=== PATIENT | male | born 1980 | race Caucasian/White ===

== ENCOUNTER 2021-02-06 10:27 | Emergency (ER) | payer MEDICAID, SELFPAY ==
--- NOTE | ~2021-02-06 | CT_ITS ---
EXAMINATION: CT BRAIN WITHOUT CONTRAST. CHEST X-RAY. CLINICAL INFORMATION: Blurry vision x1 week hyperglycemia. COMPARISON: None TECHNIQUE: 3 mm thin axial and reformatted 2 mm thin sagittal coronal images of brain were obtained without contrast. Chest one view. FINDINGS: BRAIN: There is no acute intra-axial, extra-axial bleed, masses, collection or midline shift. There is no acute infarction in evolution. The dodson to white matter difference is maintained normal. The lateral ventricles are symmetrical in size and configuration without enlargement. Bone windows reveal no calvarial abnormality. There is no scalp soft tissue abnormality. Bilateral paranasal sinuses and mastoid air cells are well-aerated. CHEST X-RAY: The lungs are well-expanded and clear of acute process. The heart size and pulmonary vascularity is normal. No gross bony abnormality seen. CT/CT head/brain wo con IMPRESSION: No acute intracranial process seen. Unremarkable chest exam.
[2021-02-06 10:45] VITALS: BP 126/88; PULSE 78; RESP 18; TEMP 36.9; O2SAT 96; BMI 36.5
[2021-02-06 10:57] LABS: Glucose, Whole Blood 334 mg/dL (60-115)
[2021-02-06 11:47] LABS: MANUAL DIFF FLAG NO
[2021-02-06 11:53] LABS: Basophils Percent Auto 0.6 % (0-2); Eosinophils Absolute Auto 0.1 X10*3/uL (0.0-0.4); Eosinophils Percent Auto 1.3 % (0-4); Hematocrit 45.1 % (42.0-52.0); Hemoglobin 15.8 g/dl (14.0-18.0); Imm Gran Abs Auto 0.03 X10*3/uL (0.00-0.03); Imm Gran Pct Auto 0.4 % (0.0-0.4); Lymphocytes Absolute Auto 2.9 X10*3/uL (1.2-4.9); Lymphocytes Percent Auto 39.6 % (20-40); Mean Corpuscular Hemoglobin 28.8 pg (27.0-33.0); Mean Corpuscular Volume 82.3 fL (80.0-98.0); Mean Platelet Volume 10.9 fL (9.4-12.4); Monocytes Absolute Auto 0.5 X10*3/uL (0.1-1.2); Monocytes Percent Auto 7.1 % (2-11); Neutrophils Absolute Auto 3.7 x10*3/uL (2.0-8.3); Platelet Count 273 X10*3/uL (160-400); Red Blood Count 5.48 X10*6/uL (4.60-5.80); Red Cell Distribution Width 12.2 % (11.0-16.0); White Blood Count 7.2 X10*3/uL (4.8-10.8)
[2021-02-06 12:14] LABS: Anion Gap 13 (12-20); Blood Urea Nitrogen 13 mg/dL (9-16); Calcium 10.4 mg/dL (8.4-10.2); Carbon Dioxide 25 mmol/L (22-29); Chloride 99 mmol/L (96-108); Creatinine Clr Calc Pharmacy 107.6; Estimated Glomerular Filt Rate > 60; Glucose Random 360 mg/dL (60-115); Potassium 4.5 mmol/L (3.3-5.1); Sodium 132 mmol/L (135-145)
[2021-02-06 12:25] LABS: Appearance Urine CLEAR; Color Urine YELLOW; Glucose Urine UA >=1000 MG/DL (NEG); Leukocyte Esterase Urine NEG (NEG); Nitrite Urine NEG (NEG); UACC Culture Trigger NO; Urine Blood TRACE (NEG); Urine Ketones NEG (NEG); Urine Protein 2+ MG/DL (NEG-TRACE)
[2021-02-06 12:26] LABS: Alanine Aminotransferase 41 U/L (0-40); Albumin Level 4.6 g/dL (3.5-5.0); Alkaline Phosphatase 129 U/L (39-117); Aspartate Amino Transferase 24 U/L (5-37); Bilirubin Direct 0.2 mg/dL (0.0-0.5); Bilirubin Total 0.5 mg/dL (0.0-1.0); Lipase 39 U/L (8-78); Magnesium 2.1 mg/dL (1.6-2.6); Total Protein 8.1 g/dL (6.5-8.0)
[2021-02-06] MEDS: 0.9 % Sodium Chloride 1,000 ML 999 ML IVCONT (12:36)
[2021-02-06 12:37] VITALS: BP 139/91; PULSE 87; RESP 17; TEMP 36.7; O2SAT 95
[2021-02-06 12:44] LABS: RBC Urine 0-2 /HPF (0); WBC Urine 0-2 /HPF (0-4)
[2021-02-06 13:00] LABS: Acetone, serum QL Negative (Negative)
--- NOTE | 2021-02-06 13:37 | ED.GENADULT ---
HPI - General Adult General Chief complaint: General Medical Stated complaint: blurred vission Time Seen by Provider: 02/06/21 11:44 Source: patient Mode of arrival: ambulatory History of Present Illness HPI narrative: 40-year-old male with a past medical history of [place] s/p stenting, non compliant on all medications x6 +months presenting to the ED complaining of bilateral blurry vision x1 week with associated polyuria, polydipsia, polyphasia. Admits to several high readings of glucose at home, denies personal or family history of diabetes. Denies fever, chills, cough, CP/SOB, abdominal pain, nausea/vomiting Onset (ago): week(s) Radiation: non-radiation Severity: mild and moderate Pain Consistency: constant Relieving factors: none Related Data Previous Rx's Medication Instructions Recorded aspirin 81 mg tablet,delayed 81 mg PO DAILY #30 tab 02/06/21 release atorvastatin 80 mg tablet 80 mg PO BEDTIME #30 tab 02/06/21 blood-glucose meter (FreeStyle #1 ea 02/06/21 [place]) clopidogrel 75 mg tablet (Plavix) 75 mg PO DAILY #30 tab 02/06/21 metformin 500 mg tablet 500 mg PO BID 30 Days #60 tab 02/06/21 metoprolol tartrate 25 mg tablet 25 mg PO DAILY #30 tab 02/06/21 Allergies Allergy/AdvReac Type Severity Reaction Status Date / Time No Known Allergies Allergy Unverified 02/06/21 12:03 Review of Systems Review of Systems: Constitutional: No Weight loss, No Fever, No Chills, No Fatigue, No Malaise ENT/Mouth: No Hearing loss, No Ear Pain, No Nasal Congestion, No Sinus Pain, No sore throat, No Swallowing Difficulty Eyes: No Eye Pain, No Swelling, No Redness, + Vision Changes Cardiovascular: No Chest Pain, No SOB, No Edema, No Palpitations Respiratory: No Cough, No Sputum, No Dyspnea Gastrointestinal: No Nausea, No Vomiting, No Diarrhea, No Constipation, No Abdominal pain Genitourinary: No Dysuria, No Urinary Frequency, No Hematuria, No Urgency, No Flank Pain, + Urinary Flow Changes Musculoskeletal: No joint pain, No Myalgias, No Joint Swelling Skin: No Skin Lesions, No rash Neuro: No Weakness, No Numbness, No Paresthesias, No Loss of Consciousness, No Dizziness, No Headache Endocrine: + Polyuria, + Polydipsia, No Temperature Intolerance Yes all other systems are reviewed and are negative Neurologic: Denies Abnormal speech present [facility] Past Medical History Attestation statement: The following information was validated with the patient. Medical History Myocardial infarct Social History Social History Advance Directives: No Advance Directives Information Provided: No Physical Exam Vital Signs: Vital Signs: Last Vital Signs Temp 97.7 F 02/06/21 15:18 Pulse 91 02/06/21 15:18 Resp 18 02/06/21 15:18 BP 124/85 02/06/21 15:18 Pulse Ox 97 02/06/21 15:18 BMI result Body Mass Index 36.5 Const: General: cooperative, healthy appearing, no acute distress, well developed, alert and awake Orientation/consciousness: patient oriented x3 Limitations: no limitations HENMT: Head: Yes normal to inspection Ears: hearing grossly normal bilaterally General nose exam: Normal external nose present Face and sinus: Yes normal facial exam Mouth: Normal oral and palatal mucosa present Throat: Yes posterior oropharynx normal, Yes tonsils normal and Yes uvula midline Eyes: General: appearance normal, both eyes and all related structures Sclerae: sclerae normal Corneas: corneas normal Pupils: Equal, round and reactive pupils present EOM: EOMs intact bilaterally Neck: Neck: Yes normal visual inspection and Yes no meningeal signs Resp: Effort & Inspection: normal respiratory effort Auscultation: clear to auscultation bilaterally, no rales, no rhonchi and no wheezes Cardio: Rate: regular rate Heart sounds: S1 normal heart sound present and S2 normal heart sound present GI: Inspection: Yes normal to inspection Palpation (GI): Soft to palpation, nontender, no guarding and not rigid : General: Yes no CVA tenderness Back/Spine/Pelvis: Back: no CVA tenderness Skin: Rashes: no rashes Wounds: no wounds Neuro: General: patient oriented x3, gait normal, tone normal, moves all extremities, no meningeal signs, no focal motor deficits and CN's II-XI intact bilaterally Cranial nerves: Yes CN's II-XII intact bilaterally, Yes Equal, round and reactive pupils present and Yes Bilaterally intact EOM present Cognition (Neuro): normal cognition Speech: No Abnormal speech present Gait exam (Neuro): Normal gait present Motor exam (neuro): 5/5 motor strength present throughout and Pronator motor function not present Extrem: General: Yes normal to inspection Course Course Course Narrative: -1400--no leukocytosis. H&H stable. Glucose 360, no anion gap, acetone negative -Sodium 132, corrected for hyperglycemia 138 >> repeat glucose after 1L IVF 254 > will give 6U subQ insulin XR chest 1V IMPRESSION: No acute intracranial process seen. Unremarkable chest exam.? CT head/brain wo con IMPRESSION: No acute intracranial process seen. Unremarkable chest exam.? -patient has no insurance and no PCP case discussed with case management, working on obtaining last PCP records from [facility] to see what patient's prescribed medications are/getting patient set up with financial office to obtain [facility] -[id number]-waiting on records from patient's PCP to prescribe previous medications. Sent Metformin to [facility] as is $4 for 30 day supply. Discussed importance of compliance with patient in need for [employer] application, he is going to financial office after discharge on 1st floor -[id number]--received records from [facility] patient was discharged on December 07, 2019 after a STEMI with 2 stents placed discharge medications included Aspirin, Atorvastatin, Plavix, Metoprolol. Will re-initiate patient on all these medications Medical Decision Making MDM Narrative Medical decision making narrative: 40-year-old male with a past medical history of AZ s/p stenting, non compliant on all medications x6 +months presenting to the ED complaining of bilateral blurry vision x1 week with associated polyuria, polydipsia, polyphasia. On exam vital signs stable, NAD/nontoxic-appearing, concern for new onset diabetes vs hyperglycemia vs other metabolic abnormalities. Low concern for CVA/TIA. Will obtain head CT to rule out mass Plan: Labs, UA, head CT, CXR, IVF, re-evaluate Medical Records Medical records reviewed: Yes I reviewed the patient's medical records. Lab Data Lab results reviewed: Yes I reviewed the patient's lab results. Result diagrams: 02/06/21 11:42 02/06/21 11:42 Labs: Lab Results 02/06/21 02/06/21 02/06/21 Range/Units 10:53 11:42 11:42 WBC 7.2 (4.8-10.8) X10*3/uL RBC 5.48 (4.60-5.80) X10*6/uL Hgb 15.8 (14.0-18.0) g/dl Hct 45.1 (42.0-52.0) % MCV 82.3 (80.0-98.0) fL MCH 28.8 (27.0-33.0) pg MCHC 35.0 (31.0-36.0) g/dl RDW 12.2 (11.0-16.0) % Plt Count 273 (160-400) X10*3/uL MPV 10.9 (9.4-12.4) fL Immature Gran % (Auto) 0.4 (0.0-0.4) % Neut % (Auto) 51.0 (45-73) % Lymph % (Auto) 39.6 (20-40) % Vernon % (Auto) 7.1 (2-11) % Eos % (Auto) 1.3 (0-4) % Baso % (Auto) 0.6 (0-2) % Lymph # (Auto) 2.9 (1.2-4.9) X10*3/uL Vernon # (Auto) 0.5 (0.1-1.2) X10*3/uL Eos # (Auto) 0.1 (0.0-0.4) X10*3/uL Baso # (Auto) 0.0 (0.0-0.2) X10*3/uL Abs Immat Gran (auto) 0.03 (0.00-0.03) X10*3/uL Absolute Neuts (auto) 3.7 (2.0-8.3) x10*3/uL Absolute Nucleated RBC 0.000 (0.0-0.012) X10*3/uL Nucleated RBC % (auto) 0.0 (0.0-0.2) /100WBC Sodium 132 L (135-145) mmol/L Potassium 4.5 (3.3-5.1) mmol/L Chloride 99 (96-108) mmol/L Carbon Dioxide 25 (22-29) mmol/L Anion Gap 13 (12-20) BUN 13 (9-16) mg/dL Creatinine 1.08 (0.5-1.4) mg/dL Estim Creat Clear Calc 107.6 Estimated GFR > 60 POC Glucose 334 H (60-115) mg/dL Random Glucose 360 H* (60-115) mg/dL Calcium 10.4 H (8.4-10.2) mg/dL Magnesium 2.1 (1.6-2.6) mg/dL Total Bilirubin 0.5 (0.0-1.0) mg/dL Direct Bilirubin 0.2 (0.0-0.5) mg/dL AST 24 (5-37) U/L ALT 41 H (0-40) U/L Alkaline Phosphatase 129 H (39-117) U/L Total Protein 8.1 H (6.5-8.0) g/dL Albumin 4.6 (3.5-5.0) g/dL Lipase 39 (8-78) U/L Urine Color Urine Appearance Urine pH (5.0-8.0) Ur Specific [place] (1.005-1.025) Urine Protein (NEG-TRACE) MG/DL Urine Glucose (UA) (NEG) MG/DL Urine Ketones (NEG) MG/DL Urine Blood (NEG) Urine Nitrite (NEG) Ur Leukocyte Esterase (NEG) Urine RBC (0) /HPF Urine WBC (0-4) /HPF Ur Squamous Epith Cells /LPF Urine Bacteria /LPF Acetone, Qual Negative (Negative) 02/06/21 02/06/21 Range/Units 12:07 13:54 WBC (4.8-10.8) X10*3/uL RBC (4.60-5.80) X10*6/uL Hgb (14.0-18.0) g/dl Hct (42.0-52.0) % MCV (80.0-98.0) fL MCH (27.0-33.0) pg MCHC (31.0-36.0) g/dl RDW (11.0-16.0) % Plt Count (160-400) X10*3/uL MPV (9.4-12.4) fL Immature Gran % (Auto) (0.0-0.4) % Neut % (Auto) (45-73) % Lymph % (Auto) (20-40) % Vernon % (Auto) (2-11) % Eos % (Auto) (0-4) % Baso % (Auto) (0-2) % Lymph # (Auto) (1.2-4.9) X10*3/uL Vernon # (Auto) (0.1-1.2) X10*3/uL Eos # (Auto) (0.0-0.4) X10*3/uL Baso # (Auto) (0.0-0.2) X10*3/uL Abs Immat Gran (auto) (0.00-0.03) X10*3/uL Absolute Neuts (auto) (2.0-8.3) x10*3/uL Absolute Nucleated RBC (0.0-0.012) X10*3/uL Nucleated RBC % (auto) (0.0-0.2) /100WBC Sodium (135-145) mmol/L Potassium (3.3-5.1) mmol/L Chloride (96-108) mmol/L Carbon Dioxide (22-29) mmol/L Anion Gap (12-20) BUN (9-16) mg/dL Creatinine (0.5-1.4) mg/dL Estim Creat Clear Calc Estimated GFR POC Glucose 254 H (60-115) mg/dL Random Glucose (60-115) mg/dL Calcium (8.4-10.2) mg/dL Magnesium (1.6-2.6) mg/dL Total Bilirubin (0.0-1.0) mg/dL Direct Bilirubin (0.0-0.5) mg/dL AST (5-37) U/L ALT (0-40) U/L Alkaline Phosphatase (39-117) U/L Total Protein (6.5-8.0) g/dL Albumin (3.5-5.0) g/dL Lipase (8-78) U/L Urine Color YELLOW Urine Appearance CLEAR Urine pH 6.0 (5.0-8.0) Ur Specific [place] 1.020 (1.005-1.025) Urine Protein 2+ H (NEG-TRACE) MG/DL Urine Glucose (UA) >=1000 H (NEG) MG/DL Urine Ketones NEG (NEG) MG/DL Urine Blood TRACE (NEG) Urine Nitrite NEG (NEG) Ur Leukocyte Esterase NEG (NEG) Urine RBC 0-2 (0) /HPF Urine WBC 0-2 (0-4) /HPF Ur Squamous Epith Cells NONE /LPF Urine Bacteria NONE /LPF Acetone, Qual (Negative) Discharge Plan Discharge Clinical Impression: Diabetes mellitus, new onset Patient Disposition: Home, Self-Care Instructions: Diabetes and Nutrition (ED), Diabetes and Exercise (ED) Additional Instructions: You have new onset diabetes You need to practice a diabetic diet Metformin is a diabetic medication, take as prescribed, do not miss any doses Is very important for you to monitor your sugar at home You also need to take your other home prescribed medications PLEASE APPLY FOR [employer]. IT IS CRUCIAL YOU HAVE A PRIMARY CARE DOCTOR THAT CAN CONTINUE THESE MEDICATIONS You are at risk other HEART ATTACKS AND STROKE with your medication noncompliance If your symptoms persist/worsen, you have chest pain/shortness of breath, weakness please return to the emergency department Prescriptions: New metformin 500 mg tablet 500 mg PO BID 30 Days Qty: 60 RF: 0 (DME) blood-glucose meter [FreeStyle [place]] Kit See Rx Instructions .Route Qty: 1 RF: 0 aspirin 81 mg tablet,delayed release (DR/EC) 81 mg PO DAILY Qty: 30 RF: 0 atorvastatin 80 mg tablet 80 mg PO BEDTIME Qty: 30 RF: 0 clopidogrel [Plavix] 75 mg tablet 75 mg PO DAILY Qty: 30 RF: 0 metoprolol tartrate 25 mg tablet 25 mg PO DAILY Qty: 30 RF: 0 Referrals: Lidia Lowery MD [Physician] - 2 days Physician,None [Primary Care Provider] - 2 days Stand Alone Forms: Work/School Release Discharge Date/Time: 02/06/21 15:25
[2021-02-06 13:58] LABS: Glucose, Whole Blood 254 mg/dL (60-115)
[2021-02-06] MEDS: Insulin Lispro 100 UNIT/ML 3 ML VIAL 6 UNIT SUBCUT (14:23)
[2021-02-06 15:18] VITALS: BP 124/85; PULSE 91; RESP 18; TEMP 36.5; O2SAT 97
== END 2021-02-06 15:25 | disposition home or self-care (01) ==
PROVIDERS: Physician Assistant; Emergency Provider Emergency Medicine
DX: H53.8 Other visual disturbances (principal); E11.9 Type 2 diabetes mellitus without complications; Z79.899 Other long term (current) drug therapy
CPT/HCPCS: 36415; 70450; 71045; 80048; 80076; 81001; 82009; 82947; 83690; 83735; 85025; 96360; 99283; 99284

== ENCOUNTER 2021-02-20 09:29 | Outpatient (REF) | payer OTHER, SELFPAY ==
[2021-02-20 10:10] LABS: Estimated Average Glucose 309 mg/dL; Hemoglobin A1c % 12.4 %
[2021-02-20 10:36] LABS: Appearance Urine CLEAR; Color Urine YELLOW; Glucose Urine UA 250 MG/DL (NEG); Leukocyte Esterase Urine NEG (NEG); Nitrite Urine NEG (NEG); Specific Gravity - Urine >= 1.030 (1.005-1.025); UACC Culture Trigger NO; Urine Blood NEG (NEG); Urine Ketones NEG (NEG); Urine Protein 1+ MG/DL (NEG-TRACE)
[2021-02-20 10:39] LABS: Cholesterol 196 mg/dL; HDL Cholesterol 37 mg/dL; LDL Cholesterol Calculated 128 mg/dl; Triglycerides 159 mg/dL
[2021-02-20 10:54] LABS: TSH reflex Free T4 1.25 uIU/mL (0.32-4.0)
[2021-02-20 11:00] LABS: Renal Epithelial Cells Urine TRACE /LPF; WBC Urine 0-2 /HPF (0-4)
[2021-02-20 11:01] LABS: RBC Urine 0 /HPF (0)
[2021-02-20 11:05] LABS: Creatinine Urine 234.47 mg/dL; Microalbum/Creatinine Ratio Ur 182.5 ug/mg cr
== END 2021-02-20 09:30 | disposition home or self-care (01) ==
LOC: HO.LAB 09:29
PROVIDERS: PCP Nurse Practitioner Family; Visit Provider Nurse Practitioner Family
DX: Z00.00 Encounter for general adult medical examination without abnormal findings (principal); E78.00 Pure hypercholesterolemia, unspecified; I10 Essential (primary) hypertension; I25.2 Old myocardial infarction; E11.65 Type 2 diabetes mellitus with hyperglycemia; Z71.3 Dietary counseling and surveillance
CPT/HCPCS: 36415; 80061; 81001; 82043; 83036; 84443; 97802

== ENCOUNTER 2021-03-09 14:31 | Outpatient (REF) | payer OTHER, SELFPAY ==
[2021-03-09 16:12] LABS: Binax Now Covid-19 Ag Negative (Negative)
[2021-03-09 16:13] LABS: Binax Internal Control QC Valid; Binax Lot number: 9864
== END 2021-03-09 14:32 | disposition home or self-care (01) ==
LOC: HO.LAB 14:31
PROVIDERS: Visit Provider Internal Medicine
DX: Z20.822 Contact with and (suspected) exposure to COVID-19 (principal)
CPT/HCPCS: 36415; C9803

== ENCOUNTER 2021-10-05 13:45 | Outpatient (REF) | payer OTHER, SELFPAY | END 2021-10-05 13:46 | disposition home or self-care (01) | LOC: HO.LNP 13:45 | PROVIDERS: Visit Provider Physician Assistant Medical | DX: L60.0 Ingrowing nail (principal) | CPT/HCPCS: 87071; 87077; 87186; 87205 ==

== ENCOUNTER 2021-10-10 16:37 | Emergency (ER) | payer OTHER, SELFPAY ==
--- NOTE | 2021-10-10 17:28 | ED_ITS ---
HPI - Extremity Problem General Chief complaint: Skin/Abscess/Foreign Body Stated complaint: ingrown toenail Time Seen by Provider: 10/10/21 17:45 Source: patient Mode of arrival: ambulatory Limitations: no limitations History of Present Illness HPI Narrative: 40-year-old male presents with right great toe pain for approximately 2 months because of an ingrown toenail. He was evaluated at urgent care and given an tibiotics for redness and swelling. States the antibiotics are not very effective and this is his 2nd course. He does not report fevers, chills, palpitations, shortness of breath, loss of balance, or decreased sensation to the extremity. MD Complaint: extremity pain Onset (ago): month(s) (2) Pain Consistency: constant Location: right and toe (Great toe) Severity scale (1-10): 6 Quality: aching and constant Radiation: none Relieving factors: nothing Exacerbating factors: range of motion, weight bearing, walking and palpation Associated symptoms: denies other symptoms Related Data Previous Rx's Medication Instructions Recorded blood sugar diagnostic #100 ea 02/25/21 atorvastatin 80 mg tablet 80 mg PO BEDTIME #90 tabs 05/14/21 clopidogrel 75 mg tablet (Plavix) 75 mg PO DAILY #90 tabs 05/14/21 insulin glargine 100 unit/mL (3 15 unit (0.15 mL) subcut QPM #3 mL 05/14/21 mL) subcutaneous pen (Lantus Solostar U-100 Insulin) metoprolol tartrate 25 mg tablet 25 mg PO DAILY #90 tabs 05/14/21 pen needle, diabetic 32 gauge x #100 ea 06/04/21 (Comfort EZ Pen Lawrence) flash glucose sensor (FreeStyle #2 ea 06/17/21 Hiwot 2 Sensor kit) aspirin 81 mg tablet,delayed 81 mg PO DAILY #90 tabs 08/27/21 release lisinopril 10 mg tablet 10 mg PO DAILY #90 tabs 08/27/21 metformin 500 mg tablet 1,000 mg PO BID #120 tabs 08/27/21 sulfamethoxazole 800 1 tab PO Q12H #20 tabs 09/10/21 mg-trimethoprim 160 mg tablet (Bactrim DS) doxycycline monohydrate 100 mg 100 mg PO BID 14 days #28 caps 10/05/21 capsule Allergies Allergy/AdvReac Type Severity Reaction Status Date / Time No Known Allergies Allergy Verified 10/05/21 10:20 Review of Systems Review of Systems: Constitutional: No Fever, No Chills ENT/Mouth: No Ear Pain, No Hoarseness, No sore throat Eyes: No Eye Pain, No Swelling, No Redness, No Foreign Body Cardiovascular: No Chest Pain, No SOB Respiratory: No Cough, No Dyspnea Gastrointestinal: No Nausea, No Vomiting, No Diarrhea, No abdominal Pain Genitourinary: No Dysuria, No Hematuria Musculoskeletal: positive right great toe pain, No Myalgias, No Joint Swelling Skin: No Skin lacerations, No rash Neuro: No Weakness, No Numbness, No Paresthesias, No Loss of Consciousness, No Dizziness, No Headache Psych: No Anxiety/Panic, No Depression Heme/Lymph: no easy bruising, no Lymphadenopathy Endocrine: No Polyuria, No Polydipsia Yes all other systems are reviewed and are negative [facility] [place] Past Medical History Attestation statement: The following information was validated with the patient. Source: old records reviewed Medical History Myocardial infarct Social History Social History Housing: Apartment Patient Tobacco Use Status: Never used Tobacco e-Cigarette/Vaping Use: Never Used Second Hand Smoke Exposure: No Advance Directives: No Advance Directives Information Provided: No service: No Current occupational status: employed Cognitive needs: No Hearing needs: No Vision needs: Yes Physical Exam Vital Signs: Vital Signs: Last Vital Signs Temp 97.5 F 10/10/21 17:32 Pulse 94 10/10/21 17:32 Resp 16 10/10/21 17:32 BP 154/90 H 10/10/21 17:32 Pulse Ox 97 10/10/21 17:32 O2 Del Method 10/10/21 17:32 BMI result Body Mass Index 34.9 Appearance: Alert. Oriented X3. No acute distress. Eyes: Pupils equal, round and reactive to light. ENT: Pharynx normal. Neck: Normal inspection. Neck supple. CVS: Normal heart rate and rhythm. Pulses normal. Respiratory: No respiratory distress. Breath sounds normal. Abdomen: Soft and nontender. Skin: Skin warm and dry. Normal skin color. Normal skin turgor. Extremities: Right great toe paronychia with ingrown toenail fibular aspect. Full range of motion, no tendon deficit. Neuro: No motor deficit. No sensory deficit. Cranial nerves 2-12 intact. Course Course Course Narrative: 40-year-old male presents with right great toe pain and swelling with ingrown toenail. Has been treated with antibiotics twice last being 09/10/2021 with Bactrim at urgent care. He is currently on the medications and I had advised him to continue to take these medications. Patient states that the swelling is not as prominent as it was when he 1st started taking the antibiotics but he is having a difficult time walking. Plan of care is for ingrown toenail removal. Prepped and draped in sterile fashion. Irrigated and cleaned with normal saline and Betadine cleanse. Refer to procedure note for details. Partial toenail removal successful. 17:50 patient tolerated procedure well. Xeroform dressing placed by RN. Patient does understand dressing change instructions. Patient verbalized understanding of and agrees to plan of care discharge home. Verbalized understanding of signs and symptoms indicating need for emergent intervention. MDM - Extremity (Nontraumatic) MDM Narrative Medical decision making narrative: Ingrown toenail Differential Diagnosis Differential diagnosis: Likely cellulitis Medical Records Attestation: I reviewed the patient's medical records. Procedures Nerve Block Nerve Block 1: Time out performed: Yes Local Anesthetic: lidocaine 1% Amount of anesthesia used (mL): 6 Side: right Nerve Blocks: digital Procedure Successful: Yes Patient Tolerated Procedure: well and no complications Discharge Plan Discharge Clinical Impression: Ingrown nail of great toe Patient Disposition: Home, Self-Care Instructions: Ingrown Nail (ED), Nail Removal (ED), Partial Nail Avulsion for Ingrown Nail (DC), Warm Compress or Soak (ED) Additional Instructions: You evaluated for right great toenail pain with an ingrown toenail. We removed a portion of your toenail. Please follow the dressing instructions. Rest ice and elevate. Continue take all the medications that were prescribed to you. Follow-up with primary care provider as needed. Thank you for choosing this emergency department for evaluation. Please follow-up with primary care physician as needed. Return to the emergency department for any new, concerning, or worsening symptoms. Prescriptions: No Action (DME) blood sugar diagnostic Strip See Rx Instructions miscellaneous .MEDSUPPLY Qty: 100 3RF Rx Instructions: Check BS 2-3x/day (DME) pen needle, diabetic [Comfort EZ Pen Lawrence] 32 gauge x 5/32 needle See Rx Instructions .Route Qty: 100 1RF Rx Instructions: As directed (DME) FreeStyle Hiwot 2 Sensor Kit See Rx Instructions .ROUTE .MEDSUPPLY Qty: 2 11RF Rx Instructions: As directed every 2 weeks metformin 500 mg tablet 1,000 mg PO BID Qty: 120 0RF aspirin 81 mg tablet,delayed release (DR/EC) 81 mg PO DAILY Qty: 90 0RF lisinopril 10 mg tablet 10 mg PO DAILY Qty: 90 0RF Lantus Solostar U-100 Insulin 100 unit/mL (3 mL) insulin pen 15 unit subcut QPM Qty: 3 3RF atorvastatin 80 mg tablet 80 mg PO BEDTIME Qty: 90 1RF clopidogrel [Plavix] 75 mg tablet 75 mg PO DAILY Qty: 90 1RF metoprolol tartrate 25 mg tablet 25 mg PO DAILY Qty: 90 1RF sulfamethoxazole-trimethoprim [Bactrim DS] 800-160 mg tablet 1 tab PO Q12H Qty: 20 0RF doxycycline monohydrate 100 mg capsule 100 mg PO BID 14 Days Qty: 28 0RF Stand Alone Forms: Work/School Release Interventions: ED Discharge Assessment Last Done: 10/10/21 18:40 Discharge Date/Time: 10/10/21 18:45
[2021-10-10 17:32] VITALS: BP 154/90; PULSE 94; RESP 16; TEMP 36.4; O2SAT 97; BMI 34.9
[2021-10-10] MEDS: Lidocaine HCl 1 % MPF 2 ML VIAL INFILTRATI ×2 (17:35→17:36)
[2021-10-10] MEDS: Diphth,Pertus(ACell),Tet Adult 0.5 ML SYRINGE IM (18:01)
[2021-10-10] MEDS: Lidocaine HCl 1 % MPF 5 ML VIAL 2 ML SUBCUT (18:01)
== END 2021-10-10 18:45 | disposition home or self-care (01) ==
PROVIDERS: Emergency Provider Emergency Medicine
DX: L60.0 Ingrowing nail (principal); M79.674 Pain in right toe(s); E11.9 Type 2 diabetes mellitus without complications; I10 Essential (primary) hypertension; E78.00 Pure hypercholesterolemia, unspecified; Z79.4 Long term (current) use of insulin; Z79.02 Long term (current) use of antithrombotics/antiplatelets; Z79.82 Long term (current) use of aspirin; Z79.899 Other long term (current) drug therapy
CPT/HCPCS: 11730; 90471; 90715; 99282; 99284

== ENCOUNTER 2022-06-23 07:35 | Emergency (ER) | payer OTHER, SELFPAY ==
[2022-06-23 07:53] VITALS: BP 125/88; PULSE 83; RESP 16; TEMP 36.6; O2SAT 96; BMI 33.4
--- NOTE | 2022-06-23 08:12 | ED.EXTPRO ---
HPI - Extremity Problem General Chief complaint: Extremity Problem Stated complaint: Ingrown toenail Time Seen by Provider: 06/23/22 08:00 Source: patient Mode of arrival: ambulatory Limitations: no limitations History of Present Illness HPI Narrative: 41-year-old male with a PMHx of NH, HTN, HLD, type II diabetes, and ingrown toenail presents to the ED for an ingrown toenail of the left great toe x2 weeks. Reports using ibuprofen for pain with good relief, has noticed drainage from the affected area. Was seen in the emergency department on 10/10/2021 for similar issue on the same toe, portion of the left great toe nail was removed at that visit. Denies fever, chills, nausea, vomiting, diarrhea/constipation, numbness, tingling, or weakness. MD Complaint: extremity pain Onset (ago): week(s) (2) Pain Consistency: constant Location: left and lower extremity Radiation: none Relieving factors: immobilization Exacerbating factors: walking Associated symptoms: denies other symptoms Related Data Previous Rx's Medication Instructions Recorded blood sugar diagnostic #100 ea 02/25/21 clopidogrel 75 mg tablet (Plavix) 75 mg PO DAILY #90 tabs 05/14/21 pen needle, diabetic 32 gauge x #100 ea 06/04/21 (Comfort EZ Pen [place]) sulfamethoxazole 800 1 tab PO Q12H #20 tabs 09/10/21 mg-trimethoprim 160 mg tablet (Bactrim DS) doxycycline monohydrate 100 mg 100 mg PO BID 14 days #28 caps 10/05/21 capsule metoprolol tartrate 25 mg tablet 25 mg PO DAILY #90 tabs 12/26/21 aspirin 81 mg tablet,delayed 81 mg PO DAILY #90 tabs 05/30/22 release atorvastatin 80 mg tablet 80 mg PO BEDTIME #90 tabs 05/30/22 flash glucose sensor (FreeStyle #2 ea 05/30/22 Hiwot 2 Sensor kit) insulin glargine 100 unit/mL (3 15 unit (0.15 mL) subcut QPM #3 mL 05/30/22 mL) subcutaneous pen (Lantus Solostar U-100 Insulin) lisinopril 10 mg tablet 10 mg PO DAILY #90 tabs 05/30/22 metformin 500 mg tablet 1,000 mg PO BID #120 tabs 05/30/22 cephalexin 500 mg capsule 500 mg PO QID 7 days #28 caps 06/23/22 Allergies Allergy/AdvReac Type Severity Reaction Status Date / Time No Known Allergies Allergy Verified 10/05/21 10:20 Review of Systems Review of Systems: Constitutional: No Fever, No Chills ENT/Mouth: No Nasal Congestion, No Hoarseness, No Rhinorrhea, No Swallowing Difficulty Cardiovascular: No Chest Pain, No SOB Respiratory: No Cough, No Sputum, No Wheezing Gastrointestinal: No Nausea, No Vomiting, No Diarrhea, No Constipation, No Abdominal pain Musculoskeletal: + joint pain, No Myalgias, No Joint Swelling Skin: + Skin Lesions, No rash Neuro: No Weakness, No Numbness, No Paresthesias Yes all other systems are reviewed and are negative Constitutional: Constitutional: Reports as per HPI and Reports no additional constitutional complaints [facility] Past Medical History Attestation statement: The following information was validated with the patient. Medical History Myocardial infarct Social History Social History Housing: Apartment Patient Tobacco Use Status: Never used Tobacco e-Cigarette/Vaping Use: Never Used Second Hand Smoke Exposure: No Advance Directives: No Advance Directives Information Provided: Yes service: No Current occupational status: employed Cognitive needs: No Hearing needs: No Vision needs: Yes Physical Exam Vital Signs: Vital Signs: Last Vital Signs Temp 97.8 F 06/23/22 07:53 Pulse 83 06/23/22 07:53 Resp 16 06/23/22 07:53 BP 125/88 06/23/22 07:53 Pulse Ox 96 06/23/22 07:53 O2 Del Method Room Air 06/23/22 07:53 BMI result Body Mass Index 33.4 Const: General: cooperative, healthy appearing and no acute distress Nutritional Appearance: well nourished Orientation/consciousness: patient oriented x3 Limitations: no limitations HEENT: Head: Yes normal to inspection and Yes atraumatic Ears: hearing grossly normal bilaterally General nose exam: Normal external nose present Face and sinus: Yes normal facial exam Eyes: General: appearance normal, both eyes and all related structures EOM: EOMs intact bilaterally Neck: Neck: Yes normal visual inspection and Yes no meningeal signs Resp: Effort & Inspection: normal respiratory effort, able to speak in complete sentences and no respiratory distress Auscultation: clear to auscultation bilaterally Cardio: Rate: regular rate Heart sounds: S1 normal heart sound present and S2 normal heart sound present GI: Inspection: Yes normal to inspection Skin: Rashes: no rashes Wounds: no wounds Neuro: Other: Sensation of light touch intact on bilateral lower extremities. General: patient oriented x3, tone normal, no meningeal signs and CN's II-XI intact bilaterally Cognition (Neuro): normal cognition Gait exam (Neuro): Normal gait present Motor exam (neuro): 5/5 motor strength present throughout Extrem: Other: + left great toe with lateral ingrown toenail with surrounding erythema, swelling, and slight drainage. Tender to palpation. No fluctuance/induration General: Yes full ROM and Yes capillary refill normal Right lower extremity: normal to inspection, full ROM and normal capillary refill Left lower extremity: full ROM and normal capillary refill Medical Decision Making Medical Decision Making MDM Narrative: 41-year-old male with a PMHx of NH, HTN, HLD, type II diabetes, and ingrown toenail presents to the ED for an ingrown toenail of the left great toe x2 weeks. On exam, vital signs stable, + ingrown toenail to lateral aspect of left great toe with slight drainage, tenderness, and erythema. Concern for ingrown toenail and early cellulitis. No evidence of abscess. Low suspicion for septic joint Plan: I&DE Differential Diagnosis Differential Diagnoses: The differential diagnosis associated with the presentation includes As above Lab Data MDM Lab Attestation statement: I reviewed the patient's lab results. Radiology Impression Discussion of test interpretation with radiology: I have reviewed the radiologist's reading. External Record Review External record reviewed: Inpatient record, Office record, Outpatient record, Prior outpatient labs, Prior outpatient radiology, Primary care record and Outside ED record Procedures Procedure Narrative Procedure Narrative: Ingrown Toenail: Digital block performed with 1% lidocaine 4 mL used Ingrown toenail removed with scissors No complications Dressing applied Discharge Plan Discharge Clinical Impression: Ingrown toenail Patient Disposition: Home, Self-Care Instructions: Ingrown Nail (ED) Additional Instructions: Your ingrown toenail was removed. Keep area dry and clean. Please evaluate the area daily, change dressing daily Apply warm compresses Keflex as an antibiotic please give as prescribed Please follow-up with Podiatry If symptoms persist or worsen, area begins to look grossly infected, has increasing redness/drainage or you have fever return to the ED Prescriptions: New cephalexin 500 mg capsule 500 mg PO QID 7 Days Qty: 28 0RF No Action (DME) blood sugar diagnostic Strip See Rx Instructions miscellaneous .MEDSUPPLY Qty: 100 3RF Rx Instructions: Check BS 2-3x/day (DME) pen needle, diabetic [Comfort EZ Pen [place]] 32 gauge x 5/32 needle See Rx Instructions .Route Qty: 100 1RF Rx Instructions: As directed metoprolol tartrate 25 mg tablet 25 mg PO DAILY Qty: 90 1RF aspirin 81 mg tablet,delayed release (DR/EC) 81 mg PO DAILY Qty: 90 0RF atorvastatin 80 mg tablet 80 mg PO BEDTIME Qty: 90 1RF insulin glargine [Lantus Solostar U-100 Insulin] 100 unit/mL (3 mL) insulin pen 15 unit subcut QPM Qty: 3 3RF lisinopril 10 mg tablet 10 mg PO DAILY Qty: 90 0RF metformin 500 mg tablet 1,000 mg PO BID Qty: 120 0RF (DME) FreeStyle Hiwot 2 Sensor Kit See Rx Instructions .ROUTE .MEDSUPPLY Qty: 2 11RF Rx Instructions: As directed every 2 weeks clopidogrel [Plavix] 75 mg tablet 75 mg PO DAILY Qty: 90 1RF sulfamethoxazole-trimethoprim [Bactrim DS] 800-160 mg tablet 1 tab PO Q12H Qty: 20 0RF doxycycline monohydrate 100 mg capsule 100 mg PO BID 14 Days Qty: 28 0RF Referrals: Judith Cosme FNP [Primary Care Provider] - 3 days Stand Alone Forms: Work/School Release
[2022-06-23] MEDS: Lidocaine HCl 1 % MPF 5 ML VIAL INFILTRATI (09:30)
== END 2022-06-23 10:23 | disposition home or self-care (01) ==
PROVIDERS: Emergency Provider Emergency Medicine; PCP Nurse Practitioner Family
DX: L60.0 Ingrowing nail (principal); E11.9 Type 2 diabetes mellitus without complications; I10 Essential (primary) hypertension; E78.5 Hyperlipidemia, unspecified; Z79.82 Long term (current) use of aspirin; Z79.899 Other long term (current) drug therapy; Z79.4 Long term (current) use of insulin
CPT/HCPCS: 11730; 99284

== ENCOUNTER 2023-09-17 14:57 | Outpatient (AMB) | payer OTHER, SELFPAY ==
[2023-09-17 15:00] VITALS: BP 118/92; PULSE 78; O2SAT 98; BMI 33.5
--- NOTE | 2023-09-17 15:00 | A.OFFPC_ITS ---
Vital Signs 09/17/23 15:00 Height 5 ft 8 in Weight 220 lb 0.4 oz BMI 33.5 BP 118/92 H Blood Pressure Location Lt brachial Position Sitting Pulse 78 Pulse Source Pulse Oximeter Pulse Oximetry (%) 98 Oxygen Delivery Method Room Air Intake Visit Reasons: Cerebrovascular accident Intake Note: Patient is here for hospital discharge follow up. Patient was discharged from [ hospital name] on [date]. Cell Technician Required: No Allergies No Known Allergies Allergy (Verified 09/17/23 16:01) Medication List - Last Reconciled 09/17/23 by Anne Tucker PA-C aspirin 81 mg PO DAILY atorvastatin 80 mg PO BEDTIME blood sugar diagnostic Check BS 2-3x/day clopidogrel (Plavix) 75 mg PO DAILY flash glucose sensor (FreeStyle Hiwot 2 Sensor kit) As directed every 2 weeks insulin glargine (Lantus Solostar U-100 Insulin) 15 units (0.15 mL) subcut QPM lisinopril 10 mg PO DAILY metformin 1,000 mg (2 x 500 mg) PO BID metoprolol tartrate 25 mg PO DAILY pen needle, diabetic (Comfort EZ Pen [place]) As directed Tobacco use date assessed: 09/17/23 Dental Screening Dental Screen Date: 09/17/23 HPI Cerebrovascular accident HPI Details 42-year-old male with past medical histo ry uncontrolled diabetes mellitus, hypertension, hypercholesterolemia, STEMI in 2019 status post JOVANNY to mid RCA, former smoker and not currently on medications last seen by nurse practitioner 09/10/2021 coming in for hospital discharge follow up. Patient presented to [facility] ED 09/02/23 with left-sided facial droop and difficulty word finding. CT angiogram of head and neck with no high-grade stenosis or major branches of intracranial arteries. Chest x-ray, CT of the head, and EKG were done in the ED and negative and patient was admitted for monitoring. MRI found acute infarct involving the left posterior insula and temporal operculum in the posterior left MCA distribution. Patient was restarted on medications and medically managed and discharged on 09/07/2023. Patient was discharged and restar ellen on apixaban, aspirin, atorvastatin, insulin glargine, insulin lispro sliding scale, and metoprolol.? Plavix was discontinued. Follow up with Neurology outpatient, requesting Zio patch, follow up with Endocrinology outpatient and Cardiology outpatient. Today tells us that he still having difficulty with speech and hearing since his stroke. He also mentions he has been having numbness in his hands and legs along with burning pain and numbness in his feet which has been ongoing since his discharge from the hospital. He has been using his basal and short-acting insulin as directed and was recently given a Hiwot but has not been able to use it yet. He also mentions he has been taking all of the medications he was given from the hospital faithfully and as directed. He tells us he has been having difficulty falling asleep at night and has previously tried melatonin which did not help. [facility] Medical History Myocardial infarct Social History Housing: Apartment Patient Tobacco Use Status: Never used Tobacco e-Cigarette/Vaping Use: Never Used Second Hand Smoke Exposure: No service: No Current occupational status: employed Cognitive needs: No Hearing needs: No Vision needs: Yes Questionnaire Thrive Questionnaire Date Thrive assessed: 06/12/21 AUDIT C Alcohol Use Questionnaire (AUDIT-C) 1. How often do you have a drink containing alcohol?: Never Total Score: 0 Score Reviewed/Action Taken: No JAMAR-7 AMB Questionnaire JAMAR-7 Date JAMAR - 7 assessed: 06/11/21 Source: Developed by Drs. Stevan Canchola, Nan Hinkle, Warren Crane and colleagues, with an educational refugio from [employer]. Review of Systems Const Denies poor appetite and Denies weakness Eyes Reports no additional complaints ENT Denies dizziness, Denies nasal congestion, Denies tinnitus and Denies sore throat Card Denies chest pain, Denies syncope, Denies rapid heart rate and Denies dyspnea Resp Denies cough and Denies dyspnea GI Denies change in stool character, Reports constipation, Denies diarrhea, Denies nausea and Denies vomiting Musc Reports no additional complaints Skin/Breast Reports system reviewed and no additional complaints, except as documented Neuro Denies confusion, Denies dizziness, Denies syncope and Denies weakness Psych Reports no additional complaints and Denies confusion Physical exam (Primary Care) Vital Signs: Last Vital Signs Pulse 78 09/17/23 15:00 BP 118/92 H 09/17/23 15:00 Pulse Ox 98 09/17/23 15:00 Oxygen Delivery Method Room Air 09/17/23 15:00 BMI result Body Mass Index 33.5 Tobacco/Smoking Status: Tobacco use Status Tobacco use date assessed 09/17/23 09/17/23 15:01 Patient Tobacco Use Status Never used Tobacco 09/17/23 15:01 e-Cigarette/Vaping Use Never Used 09/17/23 15:01 Thrive Assessment: Date of Thrive Assessment Date Thrive assessed 06/12/21 09/17/23 15:01 Const General: cooperative, comfortable and no acute distress; No confusion Orientation/consciousness: No confusion HENMT Head: Yes normal to inspection and Yes normocephalic Eyes General: appearance normal, both eyes and all related structures Conjunctivae: conjunctivae normal Pupils: Equal, round and reactive pupils present Neck Neck: Yes normal visual inspection, Yes full ROM and Yes no lymphadenopathy Resp Effort & Inspection: normal respiratory effort Auscultation: clear to auscultation bilaterally, no crackles, no rales, no rhonchi and no wheezes Cardio Rate: regular rate Rhythm: regular rhythm Heart sounds: S1 normal heart sound present and S2 normal heart sound present Peripheral pulses: radial pulses present and dorsalis pedis present GI Inspection: Yes normal to inspection Skin General skin exam: no rashes or lesions noted Neuro General: No confusion Cranial nerves: Yes Equal, round and reactive pupils present, Yes Normal facial strength present and Yes Ability to bilaterally elevate shoulders present Extrem General: Yes normal to inspection, Yes full ROM and No edema Psych Affect: normal affect Attitude: cooperative Thought process: Normal thought process present Insight: Good insight present (Psych) Judgement: Good judgement present (Psych) Assessment and Plan Assessment & Plan (1) CVA (cerebral vascular accident): Code(s): I63.9 - Cerebral infarction, unspecified Plan: Patient was [place] [facility] [place] apixaban, aspirin, atorvastatin, and metoprolol which patient states he has been using faithfully and as directed. He has not been previously seen by Neurology and will be referred. Patient has continued difficulty with speech and hearing but otherwise has no other sequelae and no new symptoms. We will keep close eye on comorbidities and keep diabetes, cholesterol, and blood pressure under tight control. Cardiology referral. (2) Diabetes type 2, uncontrolled: Code(s): E11.65 - Type 2 diabetes mellitus with hyperglycemia Plan: Patient was started on basal insulin and sliding scale insulin while in the hospital and discharged with these medications. He has been using the insulin as directed states he does not like to purchase finger before meals. He was given a Hiwot by the hospital which was picked up today and has been unable to use it yet. Denies any numbers below 100 or any dizziness or syncope. Last A1c at [facility] was 12.7%. Patient will be referred to endocrinology for tight glucose control. Patient is referred to Podiatry and optometry for yearly evaluations. (3) Essential hypertension: Code(s): I10 - Essential (primary) hypertension Plan: Patient taking lisinopril, and metoprolol. Blood pressure mildly elevated today in the office encouraged patient to take blood pressures at home. Avoid salt intake and encourage healthy diet and regular exercise. (4) Hypercholesterolemia: Code(s): E78.00 - Pure hypercholesterolemia, unspecified Plan: Avoid foods that are high in cholesterol such as red meat, fried foods, eggs and baked goods. LDL goal of less than 70. Continue on Atorvastatin. (5) Insomnia: Code(s): G47.00 - Insomnia, unspecified Plan: Patient states he has been having difficulty falling asleep. He is used melatonin in the past with no relief. We will trial a low dose of trazodone to help with sleep. Instructed patient to cut pill in half for the 1st 1-2 nights to see how the medication as tolerated and may increase up to 50 mg. Plan Thank you for allowing me to participate in the care of this patient. I personally spent 60 minutes reviewing, examining and charting on this patient. Orders: Referrals Endocrinology Referral E11.65 - Type 2 diabetes mellitus with hyperglycemia Podiatry Referral L60.0 - Ingrowing nail Neurology Referral I63.9 - Cerebral infarction, unspecified Cardiology Referral I25.2 - Old myocardial infarction, I63.9 - Cerebral infarction, unspecified Optometry Referral E11.65 - Type 2 diabetes mellitus with hyperglycemia Medications: New trazodone 50 mg PO BEDTIME PRN 20 tabs 0RF sleep apixaban 5 mg PO BID 60 tabs 0RF Changed From metoprolol tartrate 25 mg PO DAILY 90 tabs 1RF To metoprolol tartrate 25 mg PO BID 90 tabs 1RF Refilled atorvastatin 80 mg PO BEDTIME 90 tabs 1RF aspirin 81 mg PO DAILY 90 tabs 0RF Discontinued clopidogrel (Plavix) Discontinued Reason: Patient no longer taking 75 mg PO DAILY 90 tabs 1RF Coding Level of Care Code Est Pt Level 4 (29791) Diagnoses CVA (cerebral vascular accident) I63.9 Diabetes type 2, uncontrolled E11.65 Essential hypertension I10 Hypercholesterolemia E78.00 Insomnia G47.00
== END 2023-09-17 16:41 | disposition home or self-care (01) ==
PROVIDERS: PCP Nurse Practitioner Family
DX: E11.65 Type 2 diabetes mellitus with hyperglycemia (principal); I10 Essential (primary) hypertension; E78.00 Pure hypercholesterolemia, unspecified; G47.00 Insomnia, unspecified; I69.328 Other speech and language deficits following cerebral infarction
CPT/HCPCS: 99214

== ENCOUNTER 2023-09-24 09:51 | Outpatient (AMB) | payer OTHER, SELFPAY ==
--- NOTE | 2023-09-24 09:57 | A.OFFVIS_ITS ---
Vital Signs 09/24/23 09:59 Height 5 ft 8 in Weight 227 lb 1.218 oz BMI 34.5 BP 120/78 Blood Pressure Location Rt brachial Position Sitting Pulse 71 Pulse Source Pulse Oximeter Intake Visit Reasons: Type 2 DM/CONFIRMED Intake Note: New Patient presents today to establish treatment for Type 2 Diabetes Mellitus: Last Diabetic Eye exam: DUE Last Podiatry Exam: Does not see a Education Dean Most recent HbA1c: 11.1%, 09/24/2023 Random Glucose- 246 mg/dL, Today Engraving Operator Required: No Accompanied by: Self / Same As Patient Allergies No Known Allergies Allergy (Verified 09/24/23 10:01) HPI Comments Details: [43] JANEEN [M/F] who is seen in consultation for T2DM at the request of PCP. He was recently hospitalized for a CVA. And started on basal bolus insulin in the hospital. His most recent A1c was 12.7% at [facility]. Initially diagnosed with T2DM in [2021]. Was initially started on treatment with [metformin 500mg bid]. Had insulin in the past which he only used 4 times over the year. Average 150-220 prior to starting on insulin. Current regimen [Lantus 28 units short acting before meals 27-28 0-100 no insulin 101-200 27 units 200-300 30 units ]. Freestyle hiwot sensor [ 2] average glucose: [ 218] Glucose Management indicator [too few days to calculate %] TIme in range: [ 29] % very high (above 2 Holter back I am Laisha Saucedo nurse practitioner diabetes management your primary care provider central for her to us to see if we can get your diabetes under good control 50) Forty-three % high (181-250) 28 % in range (70-180] 0 % low (69-55) 0 % very low (below 54) [ ] Standard Deviation Reports low sugars [yes ]. Treats lows with [ 2 chocolate puddings and soda ]. [Checks] sugar after to ensure it is rising. Most recent A1C [11.1%], [down] from prior [12.2] earlier in the year. Will schedule eye exam, last eye exam [2 years], [denies] retinopathy. [Denies ] neuropathy, last foot exam [], sees podiatry. [Denies] nephropathy, due for urine micro [Has] HLD, on [statin]. due for labs. [Denies] CAD. Diet: [Breakfast 3 eggs 1/2 can of hash Lunch airfrys chicken tator tots puddings 2 supper: white rice1/2 plate chicken or pork chops no veg pudding ] Weight:Has recently gained weight [facility] Medical History Myocardial infarct Surgical History (Updated 09/24/23 @ 10:07 by NEGIN Diaz) History of surgery on arm Hx of shoulder surgery Hx of heart surgery Family History (Updated 09/24/23 @ 10:09 by NEGIN Diaz) Father Accidental poisoning with ethyl alcohol Mother Heart disease Social History Housing: Apartment Patient Tobacco Use Status: Never used Tobacco e-Cigarette/Vaping Use: Never Used Second Hand Smoke Exposure: No service: No Current occupational status: employed Cognitive needs: No Hearing needs: No Vision needs: Yes Physical Exam Vital Signs: Last Vital Signs Pulse 71 09/24/23 09:59 BP 120/78 09/24/23 09:59 BMI result Body Mass Index 34.5 Absence of Cushingoid features. Absence of acromegalic features. Neck exam reveals nl size thyroid about 15 gms. No thyroid nodules palpable. No carotid bruits present. Lungs CTA. Heart S1 S2, Reg R/R. No M/R/ G. Skin exam reveals absence of vitiligo or acanthosis nigricans. Abdominal exam reveals Soft NT/ND with NA BS. No organomegaly present. Const Other: Absence of Cushingoid features. Absence of acromegalic features. Neck exam reveals nl size thyroid about 15 gms. No thyroid nodules palpable. No carotid bruits present. Lungs CTA. Heart S1 S2, Reg R/R. No M/R G. Skin exam reveals absence of vitiligo or acanthosis nigricans. Neck Other: . Extrem Other: Visual exam of foot performed. No ulcerations or open lesions. No onchomycosis, no callouses.Pulses 2 + distally Sensation intact to monofilament exam. Vib ratory sensation sensed is intact with 128 Hz tuning fork Results AMB Hemoglobin A1c AMB Hemoglobin A1c 11.1 % Last Edit by NEGIN Diaz on 09/24/23 10:2 4 Results Reviewed Results Reviewed: Laboratory Last Values Glucose (Clinic) 278 mg/dL (60-115) H 09/24/23 10:09 Hgb A1c (Clinic) 11.1 % (4.0-6.0) H 09/24/23 10:23 Assessment & Plan Assessment & Plan (1) Diabetes type 2, uncontrolled: Code(s): E11.65 - Type 2 diabetes mellitus with hyperglycemia Category: Medical Plan: Patient with diabetes with recent weigt gain with most recent A1C 12.7%. will check labs to rule out MING If type 2 will consider glp-1 agonist and possibly low dose pioglitizone. Patient education today: The patient was counseled to always carry a source of sugar and on the rule of 15's: Take 3 glucose tablets and repeat again in 15 minutes if blood sugar is not in normal range. Continue to repeat every 15 minutes until blood sugar is normal. The patient was counseled to achieve a target A1C of 7% (154 avg). Fasting blood sugars should be 90-130 in the morning and less than 180 two hours after meals. Reviewed the relationship between poor diabetic control and the developement of complications The patient was counseled to wear closed toe shoes, never walk barefooted and to inspect the feet daily. For any signs of infection or open wound patient should notify PCP or go to urgent care. Orders: Orders AMB Hemoglobin A1c 09/24/23 E11.9 - Type 2 diabetes mellitus without c omplications Thyroid Stimulating Hormone Today E11.65 - Type 2 diabetes mellitus with hyperglycemia Basic Metabolic Panel Fasting Today E11.65 - Type 2 diabetes mellitus with hyperglycemia Lipid Panel Today E78.00 - Pure hypercholesterolemia, unspecified Testosterone, Free/Total Today E11.65 - Type 2 diabetes mellitus with hyperglycemia Islet Cell Antibody Scrn/Titer Today E11.65 - Type 2 diabetes mellitus with hyperglycemia Glutamic acid decarboxylase Ab Today E11.65 - Type 2 diabetes mellitus with hyperglycemia Microalbumin, Random (w Creat) Today - Type 2 diabetes mellitus with hyperglycemia Vitamin D 25-OH Total Today - Type 2 diabetes mellitus with hyperglycemia Medications: New insulin lispro 80-100 6 units 101-150 8 units 151-200 10 units 201-250 14 units 251-300 16 units over 300 18 units 1 sliding scale dose subcut USEASDIRECTD 30 days 6 mL 5RF insulin degludec 40 units (0.2 mL) subcut DAILY 30 days 6 mL 5RF . - Type 2 diabetes mellitus with hyperglycemia insulin glargine (Lantus Solostar U-100 Insulin) 34 units (0.34 mL) subcut QPM 30 days 10.2 mL 6RF . - Type 2 diabetes mellitus with hyperglycemia Discontinued flash glucose sensor (FreeStyle Hiwot 2 Sensor kit) Discontinued Reason: Doctor's Order As directed every 2 weeks 2 ea 11RF - Type 2 diabetes mellitus with hyperglycemia insulin glargine (Lantus Solostar U-100 Insulin) Discontinued Reason: Doctor's Order 15 units (0.15 mL) subcut QPM 3 mL 3RF flash glucose scanning reader (FreeStyle Hiwot 2 Tilly) Discontinued Reason: Duplicate As directed 1 ea 0RF Coding Level of Care Code New Pt Level 5 (45697) Complex EM visit Add On G2211 Diagnoses Diabetes type 2, uncontrolled
[2023-09-24 09:59] VITALS: BP 120/78; PULSE 71; BMI 34.5
[2023-09-24 10:13] LABS: Glucose, Whole Blood 278 mg/dL (60-115)
== END 2023-09-24 11:19 | disposition home or self-care (01) ==
PROVIDERS: PCP Nurse Practitioner Family; Visit Provider Nurse Practitioner Adult Health
DX: E11.65 Type 2 diabetes mellitus with hyperglycemia (principal)
CPT/HCPCS: 99204; G2211

== ENCOUNTER → 2023-09-24 09:51 | Outpatient (BNVA) | payer OTHER, SELFPAY | PROVIDERS: PCP Nurse Practitioner Family; Visit Provider Nurse Practitioner Adult Health | DX: E11.65 Type 2 diabetes mellitus with hyperglycemia (principal); E78.00 Pure hypercholesterolemia, unspecified; Z71.3 Dietary counseling and surveillance; Z79.4 Long term (current) use of insulin; Z86.73 Personal history of transient ischemic attack (TIA), and cerebral infarction without residual deficits | CPT/HCPCS: 82947; 83036; 99202 ==

== ENCOUNTER 2023-09-25 13:39 | Outpatient (REF) | payer OTHER, SELFPAY ==
[2023-09-25 16:37] LABS: Microalbum/Creatinine Ratio Ur 95.3 ug/mg cr (<30); Microalbumin Urine 97.6 mg/L
[2023-09-26 01:35] LABS: Anion Gap 14 (12-20); Blood Urea Nitrogen 17 mg/dL (9-16); Calcium 10.5 mg/dL (8.4-10.2); Carbon Dioxide 28 mmol/L (22-29); Chloride 103 mmol/L (96-108); Cholesterol 178 mg/dL (<200); Estimated Glomerular Filt Rate > 60; Glucose Fasting 214 mg/dL (60-99); HDL Cholesterol 51 mg/dL (>40); LDL Cholesterol Calculated 84 mg/dL (<100); Potassium 4.7 mmol/L (3.3-5.1); Sodium 140 mmol/L (135-145); Triglycerides 217 mg/dL (<150)
[2023-09-26 01:39] LABS: Thyroid Stimulating Hormone 1.45 uIU/mL (0.32-4.0); Vitamin D 25-OH Total 30.6 ng/mL (>30)
[2023-09-29 12:23] LABS: Glutamic acid decarboxylase Ab <5 IU/mL (<5)
[2023-10-02 21:24] LABS: Testosterone, Free 90.1 pg/mL (35.0-155.0); Testosterone, Total 518 ng/dL (250-1100)
[2023-10-05 02:54] LABS: Islet Cell Antibody Screen NEGATIVE (NEGATIVE)
== END 2023-09-25 13:40 | disposition home or self-care (01) ==
LOC: HO.LAB 13:39
PROVIDERS: Visit Provider Nurse Practitioner Adult Health
DX: E11.65 Type 2 diabetes mellitus with hyperglycemia (principal); E78.00 Pure hypercholesterolemia, unspecified
CPT/HCPCS: 36415; 80048; 80061; 82043; 82306; 82570; 84402; 84403; 84443; 86341

== ENCOUNTER 2023-10-05 13:16 | Outpatient (AMB) | payer OTHER, SELFPAY ==
--- NOTE | 2023-10-05 13:23 | A.OFFVIS_ITS ---
VS Expanded 10/05/23 13:24 10/13/23 11:25 Height 5 ft 8 in 5 ft 8 in Weight 229 lb 15.074 oz 230 lb BMI 35.0 35.0 Intake Visit Reasons: T2DM/LVM Allergies No Known Allergies Allergy (Verified 09/24/23 10:01) Nutrition Presentation Details: Pt presents for MNT for T2DM . Pt was referred by specialist managers. Candido Tineo NP Pt has concerns regarding hypoglycemia. He acknowledges discussing concerns with various providers and verbalizes appropriate treatment for hypoglycemia. Pt also reports working with prescribing provider regarding dm med changes. Per freestyle report Pt has had 3 episodes of BG below 70 since 09/23/2023 which he reports treating by having juice and cracker or additional food. Noted some of these low bg are quickly after an elevated bg in AM. Pt reports skipping his insulin dosages frequently and low bg happening when he takes the prandial insulin after the meals, following sliding scale according to post prandial blood glucose level. Pt was advised to follow recommendation from prescribing provider, to take lispro insulin using sliding scale according to blood sugar before the meal to prevent low blood sugars episodes. food frequency fruit: 1/d, fish: not including yogurt/milk: not including soda/ not including denies alcohol/denies smoking BS Monitoring Most Recent Diabetes Results: Microalb/Creat Ratio 95.3 ug/mg cr (<30) H 09/25/23 Cholesterol 178 mg/dL (<200) 09/25/23 HDL Cholesterol 51 mg/dL (>40) 09/25/23 Triglycerides 217 mg/dL (<150) H 09/25/23 Creatinine 0.91 mg/dL (0.5-1.4) 09/25/23 Blood Urea Nitrogen 17 mg/dL (9-16) H 09/25/23 Sodium 140 mmol/L (135-145) 09/25/23 Potassium 4.7 mmol/L (3.3-5.1) 09/25/23 Chloride 103 mmol/L (96-108) 09/25/23 Carbon Dioxide 28 mmol/L (22-29) 09/25/23 Calcium 10.5 mg/dL (8.4-10.2) H 09/25/23 OLY-Zjpbdrs-Ex.Jeor Equation Height: 5 ft 8 in Weight: 230 lb Resting Metabolic Rate: 1915.16 Calculated Activity Level: Mild Activity Calories Needed to Maintain Weight: 2633.35 Diagnosis Nutrition problem #1: food nutri know defi As related to (etiology) #1: diagnosis As evidenced by (sign/symptom) #1: knowledge deficit of diet Learning/Education Educational materials provided: Yes (healthy plate method, prevention of hypoglycemia ) PFS Medical History Myocardial infarct Surgical History (Updated 09/24/23 @ 10:07 by NEGIN Diaz) History of surgery on arm Hx of shoulder surgery Hx of heart surgery Family History (Updated 09/24/23 @ 10:09 by NEGIN Diaz) Father Accidental poisoning with ethyl alcohol Mother Heart disease Social History Housing: Apartment Patient Tobacco Use Status: Never used Tobacco e-Cigarette/Vaping Use: Never Used Second Hand Smoke Exposure: No service: No Current occupational status: employed Cognitive needs: No Hearing needs: No Vision needs: Yes Assessment & Plan Assessment & Plan (1) Diabetes type 2, uncontrolled: Code(s): E11.65 - Type 2 diabetes mellitus with hyperglycemia Category: Medical Plan: Wt: 104 Kg ( 10/2023 ) Est kcal needs as per MSJ: 2600 (40% carb, 30% protein/fat) Est fluid needs as per 25-30 ml/d: 3100 Est prot per day as per 1 g/kg bw: 104 Recommend fiber intake : 8-10 g per day and gradually increase to 25-28 g per day for women and 35-38 g for men or as tolerated Recommend sodium intake per day : less than 2000 mg Educated patient on: ( R = reviewed V = verbalizes understanding N/R = needs review N/A = not applicable * Food sources of carbohydrate, adequate serving sizes and its role in various health conditions: R V N/R * Differences between complex carbohydrates a simple carbohydrates, role of fiber in diet: R V N/R * Lean protein sources of foods: R V NR * Differences between types of fats and role in diet (mono on saturated fat fatty acids, saturated fatty acids, trans fats): R V N/R * Food sources of sodium in salt and healthy modifications for heart health in kidney health: R V R/V * Vitamins and minerals: R V N/R * Healthy plate method concept: R * Physical activity: Benefits a precaution: R V N/R * Hypoglycemia protocol (rule of 15): R * Dietary prevention of Hyperglycemia: R Medications: Discontinued dulaglutide (Trulicity) Discontinued Reason: Doctor's Order 0.75 mg (0.5 mL) subcut QWEEK 30 days 2.5 mL 2RF E11.65 - Type 2 diabetes mellitus with hyperglycemia tirzepatide Discontinued Reason: Doctor's Order 2.5 mg (0.5 mL) subcut QWEEK 4 weeks 2 mL 1RF E11.65 - Type 2 diabetes mellitus with hyperglycemia Patient Instructions: Have 3 scheduled meals per day and a fruit in between meals as a snack take lispro according to your blood sugar level before the meal and not after the meal, to prevent low blood sugar follow rule of 15 if having low blood sugar and communicate with your doctor Coding Level of Care Code Nutr Indiv Intake (59821) Diagnoses Diabetes type 2, uncontrolled E11.65 Time Spent (min) 30
[2023-10-05 13:24] VITALS: BMI 35.0
[2023-10-13 11:25] VITALS: BMI 35.0
== END 2023-10-05 13:55 | disposition home or self-care (01) ==
PROVIDERS: PCP Nurse Practitioner Family; Visit Provider Dietitian, Registered
DX: E11.65 Type 2 diabetes mellitus with hyperglycemia (principal)

== ENCOUNTER → 2023-10-05 13:16 | Outpatient (BNVA) | payer OTHER, SELFPAY | PROVIDERS: PCP Nurse Practitioner Family; Visit Provider Dietitian, Registered | DX: E11.65 Type 2 diabetes mellitus with hyperglycemia (principal); Z71.3 Dietary counseling and surveillance | CPT/HCPCS: 97802 ==

== ENCOUNTER 2023-10-23 15:00 | Outpatient (RCR) | payer OTHER, SELFPAY ==
--- NOTE | 2023-10-15 14:17 | MHC.OT.OEV ---
[address] [phone] F: [phone] Occupational Therapy Evaluation Patient Name: Agustin Keating Diagnosis: (R)CVA Date of Onset: 09/02/23 Date of Surgery: Attending Provider: Anne Tucker Prescribed Treatment: Follow Up Appointment: History of Current Condition: Patient is a 42 year old male with PMHx of uncontrolled diabetes mellitus, hypertension, hypercholesterolemia, STEMI in 2019 status post JOVANNY to mid RCA, former smoker and (R)CVA 08/2023. Patient stated he woke up and reached for his cell phone but he kept dropping it and was unable to hear. He drove to work and almost crashed his car. At work he was stumbling around and he had facial dropping. His employer called EMS and he was brought to [facility] were MRI revealed an acute infarct involving the left posterior insula and temporal operculum in the posterior left MCA distribution. His primary referred patient to skilled OT for pain in (B) arms. He describes the pain as a shoot pain which travels down and up the arm, and at times it can feel hot and then goes cold. 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 He lives with his girlfriend in an apartment of [facility] level home. Significant Medical History: uncontrolled diabetes mellitus, hypertension, hypercholesterolemia, STEMI in 2020 status post JOVANNY to mid RCA, former smoker Precautions/Contraindications: DM II, NISQUALLY Patient Goals: For the pain to go away. 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 (I)ADLs/IADLs Living Situation, Family and/or Social Support: Lives with girlfriend Current Level of Function and Occupation Self Care, Employment, Leisure: Currently on medical leave Sleep: Currently taking Sleeping pills for pain management at night Driving: (I) Vision: WFL Balance: Pain Assessment Pain Score: 8 Pain Scale Used: Pain Location and Description: 8/10 intermittent pain which comes and goes Aggravating Factors: Alleviating Factors: ibuprofen Skin and Soft Tissue Assessment Skin and Soft Tissue: Comments: WFL Nerve assessment Ulnar Nerve: Median Nerve: Radial Nerve: Comments: Sensory Assessment Temperature: Light Touch: B/L Impaired Proprioception: Vibration: Comments: Monofilament Test= light touch diminished Edema Assessment Upper Extremity: Lower Extremity: Comments: WFL Dexterity Assessment Dexterity: Comments: Functional Dexterity Test= (L) impaired Special Tests Comments: AROM(PROM) Strength Cervical Cervical Flexion: Cervical Extension: Cervical Lateral Flexion: Cervical Rotation: Comments: Shoulder Flexion: Extension: Abduction: Internal Rotation: External Rotation: Comments: WFL Flexion: Extension: Abduction: Internal Rotation: External Rotation: Comments: WFL Elbow Flexion: Extension: Pronation: Supination: Comments: WFL Flexion: Extension: Pronation: Supination: Comments: WFL Wrist Flexion: Extension: Ulnar Deviation: Radial Deviation: Comments: WFL Flexion: Extension: Ulnar Deviation: Radial Deviation: Comments: WFL Thumb Thumb CMC Flexion: Thumb MCP Flexion: Thumb IP Flexion: Radial Abduction: Palmar Abduction: [place] (Kapandji 0-10): Comments: WFL Digits Index MCP: PIP: DIP: Long MCP: PIP: DIP: Ring MCP: PIP: DIP: Small MCP: PIP: DIP: Comments: Gross Grasp: (R)70lbs., (L)73lbs. Lateral Pinch: Two-Point Pinch: Three-Jaw Ulysses: Comments: Patient Education Primary Language: Historian Research Assistant Required: Current Knowledge: Teaching Method: Education Needs Identified on Evaluation: How did patient/family demonstrate learning? Barriers to Learning: Readiness for Learning: Who was educated? Comments: Plan of Care Assessment: Patient is a 42 y/o male us sustained a (R)CVA 08/2023 with c/o pain in (B)UEs. His main goal for therapy is to decrease pain to be able to perform tasks. Based on initial evaluation patient presents impaired coordination, impaired strength, neuropathic pain and impaired performance during self care tasks. Due to the documented impairments it is recommended that patient receive a short course of skilled OT in order to increase UE strength and decrease neuropathic pain. Thank you for your referral. STG Duration: 2 weeks Short Term Goals: patient will be (I) with desensitization techniques patient will increase (B) piping engineer strength by 5lbs. LTG Duration: 4 weeks Account Manager Employee Benefits Goals: Patient will report 0/10 pain in (B) UEs. Patient will be (I) with HEP Patient will decrease Quick DASH score by 20% indicating UE improvement. Frequency and Duration: The patient will be seen Treatment Plan: Therapeutic Exercise Therapeutic Activity Home Exercise Program Neuro Re-ed Patient Education Desensitization/Sensory Re-ed ADL Training Ultrasound NMES Iontophoresis Paraffin Fluidotherapy MHP Cold Packs Soft Tissue Mobilization Kinesiotaping Other (see comments) TENS unit Electronically Signed By: Paulette Leone OTR/L, CLT Reviewed/agree with student documentation: Therapist: Please sign and return to therapist, Thank you for your referral.
--- NOTE | 2023-11-13 16:11 | MHC.OT.DC ---
[address] [phone] F: [phone] Occupational Therapy Discharge Note Patient Name: Agustin Zuri Provider: Anne Tucker Diagnosis: (R)CVA Date of Surgery: Date of Evaluation: 10/23/23 Date of Discharge: 11/13/23 Treatments to Date: 2 Cancellations to Date: No Shows to Date: Discharge Status: Visit Non-compliance Discharge Summary: Patient is d/c'c from skilled OT as patient has not returned to therapy. Electronically Signed By: Paulette Leone OTR/L, CLT Reviewed/agree with student documentation: Therapist: Please Sign and return to therapist, thank you for your referral.
== END 2023-11-13 16:11 | disposition home or self-care (01) ==
LOC: HO.OT 15:00
DX: I63.9 Cerebral infarction, unspecified (principal)
CPT/HCPCS: 97014; 97110; 97112; 97165

== ENCOUNTER 2023-11-02 08:20 | Outpatient (AMB) | payer OTHER, SELFPAY ==
--- NOTE | 2023-11-02 08:45 | MHC.PC.OV ---
Vital Signs 11/02/23 08:46 11/02/23 09:24 Height 5 ft 8 in Weight 222 lb 2 oz BMI 33.8 BP 120/90 H 118/88 Blood Pressure Location Lt brachial Lt brachial Position Sitting Sitting Intake Visit Reasons: follow up Quality Assurance Coach Required: No Accompanied by: Self / Same As Patient Allergies No Known Allergies Allergy (Verified 11/02/23 08:47) Medication List - Last Reconciled 11/02/23 by Anne Tucker PA-C apixaban 5 mg PO BID aspirin 81 mg PO DAILY atorvastatin 80 mg PO BEDTIME blood sugar diagnostic Check BS 2-3x/day blood-glucose meter,continuous (FreeStyle Hiwot 3 [place]) As directed blood-glucose sensor (FreeStyle Hiwot 3 Sensor device) As directed dulaglutide (Trulicity) 0.75 mg (0.5 mL) subcut QWEEK insulin degludec 40 units (0.2 mL) subcut DAILY 30 days insulin glargine (Lantus Solostar U-100 Insulin) 34 units (0.34 mL) subcut QPM 30 days insulin lispro 1 sliding scale dose subcut USEASDIRECTD 30 days lisinopril 10 mg PO DAILY metformin 1,000 mg (2 x 500 mg) PO BID metoprolol tartrate 25 mg PO BID pen needle, diabetic (Comfort EZ Pen [place]) As directed trazodone 50 mg PO BEDTIME PRN Tobacco use date assessed: 09/17/23 Dental Screening Dental Screen Date: 09/17/23 HPI follow up HPI Details 42-year-old male with past medical history uncontrolled diabetes mellitus, hypertension, hypercholesterolemia, STEMI in 2019 status post JOVANNY to mid RCA, former smoker, history of CVA 2023 coming in for follow up.?In review of the notes, patient was seen by ophthalmology for diabetic eye exam.?[place] [facility] [place] last seen 09/2023 and started on insulin sliding scale along with insulin glargine with follow up in 2 months. Patient states his sugars have been generally well managed and he has been eating less while on Trulicity. He states he has decreased the amount of sugars he intakes and has completely cut out juice however he does drink soda every day. His sugars are typically between 100-250 and occasionally will have sugars below 100 which is usually from skipping meals. He also mentions he will occasionally have dizziness with blurred vision that resolved on its own within a few minutes. [facility] Medical History Myocardial infarct Surgical History History of surgery on arm Hx of shoulder surgery Hx of heart surgery Family History Father Accidental poisoning with ethyl alcohol Mother Heart disease Social History Housing: Apartment Patient Tobacco Use Status: Never used Tobacco e-Cigarette/Vaping Use: Never Used Second Hand Smoke Exposure: No service: No Current occupational status: employed Cognitive needs: No Hearing needs: No Vision needs: Yes Questionnaire PHQ-9 Over the last 2 weeks, how often have you been bothered by any of the following problems? 1. Little interest or pleasure in doing things: not at all 2. Feeling down, depressed, or hopeless: not at all 3. Trouble falling or staying asleep, or sleeping too much: not at all 4. Feeling tired or having little energy: not at all 5. Poor appetite or overeating: not at all 6. Feeling bad about yourself - or that you are a failure or have let yourself or your family down: not at all 7. Trouble concentrating on things, such as reading the newspaper or watching television: not at all 8. Moving or speaking so slowly that other people could have noticed. Or the opposite - being so fidgety or restless that you have been moving around a lot more than usual: not at all 9. Thoughts that you would be better off or of hurting yourself in some way: not at all Total score: 0 Source: Developed by Drs. Stevan Canchola, Nan Hinkle, Warren Crane and colleagues, with an educational refugio from [employer]. Thrive Questionnaire Date Thrive assessed: 11/02/23 I am a: Patient What is your living situation today?: I have a steady place to live Within the past 12 months, did the food you bought not last and you didn't have the money to get more?: Never true Within the past 12 months, did you worry whether your food would run out before you got money to buy more?: Never true Do you have trouble paying for medicines?: No Do you have trouble getting transportation to medical appointments?: No Do you have trouble paying your heating and electricity bill?: No Do you have trouble taking care of your child, family member or friend?: No Do you have trouble with day-to-day activities such as bathing, preparing meals, shopping, managing finances, etc.?: No Are you currently unemployed and looking for a job?: No Are you interested in more education?: No Please select the resources that you would like help with: None Currently or been in a relationship where the following occur: No concerns reported THRIVE Score: 0 AUDIT C Alcohol Use Questionnaire (AUDIT-C) 1. How often do you have a drink containing alcohol?: Never Total Score: 0 JAMAR-7 AMB Questionnaire JAMAR-7 Date JAMAR - 7 assessed: 11/02/23 Feeling nervous, anxious, or on edge: 0 = Not at all Not being able to stop or control worryin = Not at all Worrying too much about different things: 0 = Not at all Trouble relaxin = Not at all Being so restless that it is hard to sit still: 0 = Not at all Becoming easily annoyed or irritable: 0 = Not at all Feeling afraid as if something awful might happen: 0 = Not at all Total JAMAR-7 score (0-4 normal; 5-9 mild; 10-14 moderate; 15-21 severe): 0 Source: Developed by Drs. Stevan Canchola, Nan Hinkle, Warren Crane and colleagues, with an educational refugio from [employer]. Review of Systems Const Denies body aches, Denies chills, Denies fever(s), Denies headache(s) and Denies poor appetite Eyes Reports as per HPI ENT Denies dysphagia, Reports dizziness and Denies headache(s) Card Denies chest pain, Denies syncope, Denies edema, Denies irregular heart rhythm, Reports lightheadedness and Denies dyspnea Resp Denies cough and Denies dyspnea GI Denies abdominal pain and Denies dysphagia Reports no additional complaints Musc Details: Upper extremity and lower extremity weakness Reports no additional complaints and Denies abnormal gait Skin/Breast Reports system reviewed and no additional complaints, except as documented Neuro Denies abnormal gait, Reports dizziness, Denies syncope and Denies headache(s) Psych Reports no additional complaints Physical exam (Primary Care) Vital Signs: Last Vital Signs BP 120/90 H 11/02/23 08:46 BMI result Body Mass Index 33.8 Tobacco/Smoking Status: Tobacco use Status Tobacco use date assessed 09/17/23 11/02/23 08:50 Patient Tobacco Use Status Never used Tobacco 11/02/23 08:50 e-Cigarette/Vaping Use Never Used 11/02/23 08:50 PHQ-9: PHQ-9 Score PHQ-9: Total score 0 11/02/23 08:51 Thrive Assessment: Date of Thrive Assessment Date Thrive assessed 11/02/23 11/02/23 08:50 Currently or been in a relationship where the following occur: No concerns reported Const General: cooperative, healthy appearing, comfortable and no acute distress Orientation/consciousness: patient oriented x3 HENMT Head: Yes normocephalic Ears: hearing grossly normal bilaterally General nose exam: Normal external nose present Eyes General: appearance normal, both eyes and all related structures Conjunctivae: conjunctivae normal Neck Neck: Yes full ROM and Yes no lymphadenopathy Resp Effort & Inspection: normal respiratory effort Auscultation: clear to auscultation bilaterally, no crackles, no rales, no rhonchi and no wheezes Cardio Rate: regular rate Rhythm: regular rhythm Skin General skin exam: no rashes or lesions noted Neuro General: patient oriented x3 Gait exam (Neuro): Normal gait present Extrem General: Yes normal to inspection, Yes full ROM and No edema Psych Affect: normal affect Attitude: cooperative Insight: Good insight present (Psych) Judgement: Good judgement present (Psych) Assessment and Plan Assessment & Plan (1) Lower extremity weakness: Code(s): R29.898 - Other symptoms and signs involving the musculoskeletal system Plan: Has not yet seen physical therapy for this concern. Awaiting evaluation and treatment from PT. (2) CVA (cerebral vascular accident): Code(s): I63.9 - Cerebral infarction, unspecified Plan: Patient has been working with occupational therapy for upper extremity weakness. He has increased his exercise and has been working on cholesterol, blood sugars, and blood pressure. Appoint[place] with [facility] [place] April 2023 we will refer to [facility] neurology for possible earlier appointment. (3) Essential hypertension: Code(s): I10 - Essential (primary) hypertension Plan: Continue on current blood pressure medication. Avoid salt intake and encourage healthy diet and regular exercise. Blood pressure at goal today 120/90 when retaken was 118/88. Continue monitoring and follow up at next appointment. (4) Hypercholesterolemia: Code(s): E78.00 - Pure hypercholesterolemia, unspecified Plan: Continue on atorvastatin. Avoid foods that are high in cholesterol such as red meat, fried foods, eggs and baked goods. Triglyceride goal of less than 150 and LDL goal of less than 70. (5) Diabetes type 2, uncontrolled: Code(s): E11.65 - Type 2 diabetes mellitus with hyperglycemia Plan: Decrease the amount of carbohydrates such as pasta, bread, rice, and potatoes and limit the amount of sweets. Although fruits are generally healthy they should be eaten in moderation as they are still high in sugar. Hemoglobin A1c goal of less than 7%. Continue on current medication and continue to follow up with endocrinology. We will occasionally have episodes dizziness and blurred vision advised patient to keep glucose tabs on his person and use them as needed for low blood sugars. Plan This note was constructed using voice recognition software. While every effort has been made to ensure accuracy and webfocus developer, still areas may have been included sometimes these areas may affect the content or meeting of the given symptoms. Total time spent caring for the patient today was 30 minutes. This includes time spent before the visit reviewing the chart, time spent during the visit, and time spent after the visit and documentation. Orders: Referrals Neurology Referral I63.9 - Cerebral infarction, unspecified Coding Level of Care Code Est Pt Level 4 (71434) Diagnoses Lower extremity weakness R29.898 CVA (cerebral vascular accident) I63.9 Essential hypertension I10 Hypercholesterolemia E78.00 Diabetes type 2, uncontrolled E11.65
[2023-11-02 08:46] VITALS: BP 120/90; BMI 33.8
[2023-11-02 09:24] VITALS: BP 118/88
== END 2023-11-02 09:25 | disposition home or self-care (01) ==
DX: I10 Essential (primary) hypertension (principal); E11.65 Type 2 diabetes mellitus with hyperglycemia; R29.898 Other symptoms and signs involving the musculoskeletal system; E78.00 Pure hypercholesterolemia, unspecified; Z86.73 Personal history of transient ischemic attack (TIA), and cerebral infarction without residual deficits
CPT/HCPCS: 99214

== ENCOUNTER 2023-11-10 08:59 | Outpatient (AMB) | payer OTHER, SELFPAY ==
--- NOTE | 2023-11-10 07:23 | A.OFFVIS_ITS ---
Vital Signs 11/10/23 09:04 Height 5 ft 8 in Weight 229 lb 8.019 oz BMI 34.9 BP 104/74 Blood Pressure Location Rt brachial Position Sitting Pulse 82 Pulse Source Pulse Oximeter Intake Visit Reasons: DM/Discuss medication/MAILBOX FULL Intake Note: Patient presents today to discuss medications/Type 2 Diabetes Mellitus: Last Diabetic Eye exam: 10/2023 Last Podiatry Exam: Does not see a Audio Visual Aids Director Most recent HbA1c: 11.1%, 09/24/2023 Random Glucose- 236 mg/dL Glove Presser Required: No Accompanied by: Self / Same As Patient Allergies No Known Allergies Allergy (Verified 11/10/23 09:09) HPI Comments Details: [42] YO [M/F] who is seen in follow-up for T2DM. He was seen as an initial diabetes consult on 09/24/23 by myself. He was hospitalized in August for a CVA and was started on basal bolus insulin in the hospital. His most recent A1c was 11.1% on 09/24/23. JAMAR antibodies and islet cell antibody screen done 09/29 were negative for type 1. Initially diagnosed with T2DM in [2021]. Was initially started on treatment with [metformin 500mg bid]. Had insulin in the past which he only used 4 times over the year. Average 150-220 prior to starting on insulin. Ozempic prior authorization was denied 10/28/23. Trulicity prescription was sent 10/13/23. Current regimen Tresiba 20-25 units was prescribed at 40 units Lispro before meals 0-100 6-8 units 101-200 10-16 200-300 18 units Truliity 0.75mg weekly glucose readings low 200 Treats lows with [ 2 chocolate puddings and soda ]. [Checks] sugar after to ensure it is rising. counseled re 15 carb gram Most recent A1C [11.1%], [down] from prior [12.7%] earlier in the year. last eye exam 1 month ago, [denies] retinopathy. [Denies ] neuropathy, last foot exam [today in office], does not see podiatry [Denies] nephropathy, urine micro 95.3 done 09/25/23 previous 428 in 2020 [Has] HLD, on [statin]. LDL 84 09/29 down from 128 Stemi 2019 CVA 2023 Diet: [Breakfast 3 eggs 1/2 can of hash Lunch airfrys chicken tator tots puddings 2 supper: white rice1/2 plate chicken or pork chops no veg pudding ] Weight:Has recently gained weight Has not seen CDE/RD [facility] Medical History Myocardial infarct Surgical History History of surgery on arm Hx of shoulder surgery Hx of heart surgery Family History Father Accidental poisoning with ethyl alcohol Mother Heart disease Social History Housing: Apartment Patient Tobacco Use Status: Never used Tobacco e-Cigarette/Vaping Use: Never Used Second Hand Smoke Exposure: No service: No Current occupational status: employed Cognitive needs: No Hearing needs: No Vision needs: Yes Physical Exam Vital Signs: Last Vital Signs Pulse 82 11/10/23 09:04 BP 104/74 11/10/23 09:04 BMI result Body Mass Index 34.9 Const Other: Absence of Cushingoid features. Absence of acromegalic features. Neck exam reveals nl size thyroid about 15 gms. No thyroid nodules palpable. No carotid bruits present. Lungs CTA. Heart S1 S2, Reg R/R. No M/R G. Skin exam reveals absence of vitiligo or acanthosis nigricans. Extrem Other: Visual exam of foot performed. No ulcerations or open lesions. No onchomycosis, no callouses. Sensation intact to monofilament exam. Vibratory sensation is normal with 128 Hz tuning fork. Results Reviewed Results Reviewed: Laboratory Last Values Glucose (Clinic) 236 mg/dL (60-115) H 11/10/23 09:11 Laboratory Tests 02/06/21 09/24/23 09/25/23 11:42 10:23 13:42 Plt Count 273 Potassium Creatinine Estimated GFR Hgb A1c (Clinic) 11.1 H Calcium Triglycerides Cholesterol LDL Cholesterol, Calc HDL Cholesterol 25-OH Vitamin D Total TSH Total Testosterone Urine Creatinine 102.40 Urine Microalbumin 97.6 Microalb/Creat Ratio 95.3 H Islet Cell Ab Screen JAMAR Antibody 09/25/23 13:55 Plt Count Potassium 4.7 Creatinine 0.91 Estimated GFR > 60 Hgb A1c (Clinic) Calcium 10.5 H Triglycerides 217 H Cholesterol 178 LDL Cholesterol, Calc 84 HDL Cholesterol 51 25-OH Vitamin D Total 30.6 L TSH 1.45 Total Testosterone 518 Urine Creatinine Urine Microalbumin Microalb/Creat Ratio Islet Cell Ab Screen NEGATIVE JAMAR Antibody <5 Assessment & Plan Assessment & Plan (1) Ingrowing toenail with infection: Code(s): L60.0 - Ingrowing nail (2) Diabetes type 2, uncontrolled: Code(s): E11.65 - Type 2 diabetes mellitus with hyperglycemia Category: Medical Plan: Type 2 diabetic with glucose numbers in the 200 range. He has just started Trulicity. We will titrate this upward as tolerated and consider adding Actos 15 mg for both diabetes and CVA risk reduction Plan Will treat with antibiotic. He will f/u two weeks and contact pcp if not better Medications: New cephalexin 500 mg PO BID 20 caps 0RF 10 days L60.0 - Ingrowing nail Discontinued insulin glargine Discontinued Reason: Doctor's Order 34 units (0.34 mL) subcut QPM 30 days 10.2 mL 6RF E11.65 - Type 2 diabetes mellitus with hyperglycemia Coding Level of Care Code Est Pt Level 4 (61629) Complex EM visit Add On G2211 Diagnoses Ingrowing toenail with infection L60.0 Diabetes type 2, uncontrolled E11.65
[2023-11-10 09:04] VITALS: BP 104/74; PULSE 82; BMI 34.9
[2023-11-10 09:15] LABS: Glucose, Whole Blood 236 mg/dL (60-115)
== END 2023-11-10 09:57 | disposition home or self-care (01) ==
PROVIDERS: Visit Provider Nurse Practitioner Adult Health
DX: L60.0 Ingrowing nail (principal); E11.65 Type 2 diabetes mellitus with hyperglycemia
CPT/HCPCS: 99214; G2211

== ENCOUNTER → 2023-11-10 08:59 | Outpatient (BNVA) | payer OTHER, SELFPAY | PROVIDERS: Visit Provider Nurse Practitioner Adult Health | DX: E11.65 Type 2 diabetes mellitus with hyperglycemia (principal); L60.0 Ingrowing nail; Z79.4 Long term (current) use of insulin | CPT/HCPCS: 82947; 99212 ==

== ENCOUNTER 2023-11-16 11:10 | Outpatient (AMB) | payer OTHER, SELFPAY ==
--- NOTE | 2023-11-16 11:39 | A.OFFVIS_ITS ---
VS Expanded 11/16/23 11:47 Height 5 ft 8 in Weight 225 lb 12.054 oz BMI 34.3 Intake Visit Reasons: T2DM/UNABLE TO LVM Allergies No Known Allergies Allergy (Verified 11/10/23 09:09) Nutrition Presentation Details: Pt presents for MNT f/u fpr T2DM Pt reports working on diet modifications, reducing portions of empty calorie foods BS Monitoring Most Recent Diabetes Results: No Data to Display [facility] Medical History Myocardial infarct Surgical History History of surgery on arm Hx of shoulder surgery Hx of heart surgery Family History Father Accidental poisoning with ethyl alcohol Mother Heart disease Social History Housing: Apartment Patient Tobacco Use Status: Never used Tobacco e-Cigarette/Vaping Use: Never Used Second Hand Smoke Exposure: No service: No Current occupational status: employed Cognitive needs: No Hearing needs: No Vision needs: Yes Assessment & Plan Assessment & Plan (1) Diabetes type 2, uncontrolled: Code(s): E11.65 - Type 2 diabetes mellitus with hyperglycemia Category: Medical Plan: Wt: 104 Kg ( 10/2023 ), 103 kg (11/30) Est kcal needs as per MSJ: 2600 (40% carb, 30% protein/fat) Est fluid needs as per 25-30 ml/d: 3100 Est prot per day as per 1 g/kg bw: 104 Recommend fiber intake : 8-10 g per day and gradually increase to 25-28 g per day for women and 35-38 g for men or as tolerated Recommend sodium intake per day : less than 2000 mg Educated patient on: ( R = reviewed V = verbalizes understanding N/R = needs review N/A = not applicable * Food sources of carbohydrate, adequate serving sizes and its role in various health conditions: R V N/R * Differences between complex carbohydrates a simple carbohydrates, role of fiber in diet: R V N/R * Lean protein sources of foods: R * Differences between types of fats and role in diet (mono on saturated fat fatty acids, saturated fatty acids, trans fats): R V N/R * Food sources of sodium in salt and healthy modifications for heart health in kidney health: R V R/V * Vitamins and minerals: R V N/R * Healthy plate method concept: R * Physical activity: Benefits a precaution: R * Hypoglycemia protocol (rule of 15): R * Dietary prevention of Hyperglycemia: R Patient Instructions: Continue working on reducing foods high in sugar/salt , Limit snack to 3 a day choosing a fruit or unsalted nuts or glucerna shake - aiming at less than 20 g of carbs as a snack Coding Level of Care Code Nutr Indiv Subseq (28113) Diagnoses Diabetes type 2, uncontrolled E11.65 Time Spent (min) 30
[2023-11-16 11:47] VITALS: BMI 34.3
== END 2023-11-16 11:57 | disposition home or self-care (01) ==
PROVIDERS: PCP Nurse Practitioner Family; Visit Provider Dietitian, Registered
DX: E11.65 Type 2 diabetes mellitus with hyperglycemia (principal)

== ENCOUNTER → 2023-11-16 11:10 | Outpatient (BNVA) | payer OTHER, SELFPAY | PROVIDERS: PCP Nurse Practitioner Family; Visit Provider Dietitian, Registered | DX: E11.65 Type 2 diabetes mellitus with hyperglycemia (principal) | CPT/HCPCS: 97803 ==

== ENCOUNTER 2023-11-24 10:39 | Outpatient (AMB) | payer OTHER, SELFPAY ==
--- NOTE | 2023-11-24 08:55 | A.OFFVIS_ITS ---
Vital Signs 11/24/23 10:40 Height 5 ft 8 in Weight 227 lb 1.218 oz BMI 34.5 BP 122/86 Blood Pressure Location Rt brachial Position Sitting Pulse 62 Pulse Source Pulse Oximeter Intake Visit Reasons: Follow DMT2/Foot exam/LVM Intake Note: Patient presents today to discuss medications/Type 2 Diabetes Mellitus: Last Diabetic Eye exam: 10/2023 Last Podiatry Exam: Does not see a Frog Or Oyster Farmworker Most recent HbA1c: 11.1%, 09/24/2023 Random Glucose- 173 mg/dL Electrical Solderer Required: No Accompanied by: Self / Same As Patient Allergies No Known Allergies Allergy (Verified 11/24/23 10:40) HPI Comments Details: 42 YO male who is seen in follow-up for T2DM. He was seen as an initial diabetes consult on 09/24/23 by myself and in follow up 11/10/23. He was hospitalized in August for a CVA and was started on basal bolus insulin in the hospital. His most recent A1c was 11.1% on 09/24/23. JAMAR antibodies and islet cell antibody screen done 09/29 were negative for type 1. He was started on Trulicity which has been titrated up to 1.5mg weekly. I had previously discussed also going on low dose Pioglitizone which he had declined. Initially diagnosed with T2DM in [2021]. Was initially started on treatment with [metformin 500mg bid]. Had insulin in the past which he only used 4 times over the year. Average 150-220 prior to starting on insulin. Ozempic prior authorization was denied 10/28/23. Trulicity prescription was sent 10/13/23. Current regimen Tresiba 32 units Lispro before meals 0-100 6-8 units 101-200 10-16 200-300 18 units Truliity 0.75mg weekly Treats lows with [ 1 chocolate pudding]. [Checks] sugar after to ensure it is rising. counseled re 15 carb gram Most recent A1C [11.1%], [down] from prior [12.7%] earlier in the year. last eye exam 1 month ago, [denies] retinopathy. [Denies ] neuropathy, last foot exam [today in office], does not see podiatry + Nephropathy, labs done 09/29: urine micro 95.3 [ previous 428 in ], eGFR >60 Has HLD, on high dose Atorvastatin LDL 84 09/29 down from 128 Stemi 2019 CVA 2023 Diet:Has seen RD several times 2023 working on lowering snacks to no more than 20 carb grams 3x per day [Breakfast 3 eggs 1/2 can of hash Lunch airfrys chicken tator tots puddings 2 supper: white rice1/2 plate chicken or pork chops no veg pudding ] Weight:227 09/29 today Has not seen CDE [facility] Medical History Myocardial infarct Surgical History History of surgery on arm Hx of shoulder surgery Hx of heart surgery Family History Father Accidental poisoning with ethyl alcohol Mother Heart disease Social History Housing: Apartment Patient Tobacco Use Status: Never used Tobacco e-Cigarette/Vaping Use: Never Used Second Hand Smoke Exposure: No service: No Current occupational status: employed Cognitive needs: No Hearing needs: No Vision needs: Yes Assessment & Plan Assessment & Plan (1) Diabetes type 2, uncontrolled: Code(s): E11.65 - Type 2 diabetes mellitus with hyperglycemia Category: Medical Plan: Type 2 diabetic with glucose average 220. Will increase medications as follows: Tresiba 40 units Lispro before meals 80-150 12 units 151-200 16 units 201-240 20 units 250-300 22 units over 300 24 units Truliity 1.5 mg weekly Infection around ingrown toe nail nearly resolved. Will extend antibiotic course referred to [facility] Will try for freestyle yo 3 plus at a [facility]. He was advised to closely follow glucose with increase in insulin and trulicity as he may need a reduction in the amount of insulin. target of less than 130 in the am, 160-180 2 hours after meals Orders: Orders Calcium 2 Weeks E83.52 - Hypercalcemia Parathyroid Hormone Intact 2 Weeks E83.52 - Hypercalcemia Albumin Level 2 Weeks E83.52 - Hypercalcemia Referrals Podiatry Referral E11.65 - Type 2 diabetes mellitus with hyperglycemia Medications: New ciprofloxacin HCl (Cipro) 500 mg PO BID 7 days 14 tabs 0RF L60.0 - Ingrowing nail Changed From insulin lispro 80-100 6 units 101-150 8 units 151-200 10 units 201-250 14 units 251-300 16 units over 300 18 units 1 sliding scale dose subcut USEASDIRECTD 30 days 6 mL 5RF To insulin lispro 80-150 12 units 151-200 16 units 201-250 20 units 251-300 24 units over 300 18 units 1 sliding scale dose subcut USEASDIRECTD 30 days 21 mL 5RF Refilled insulin degludec 40 units (0.2 mL) subcut DAILY 30 days 6 mL 5RF E11.65 - Type 2 diabetes mellitus with hyperglycemia Discontinued cephalexin Discontinued Reason: Doctor's Order 500 mg PO BID 10 days 20 caps 0RF L60.0 - Ingrowing nail Patient Instructions: The patient was counseled to achieve a target A1C of 7% (154 avg). Fasting blood sugars should be 90-130 in the morning and less than 180 two hours after meals. Reviewed the relationship between poor diabetic control and the developement of complications Low glucose treatment Coding Level of Care Code Est Pt Level 4 (25902) Complex EM visit Add On G2211 Diagnoses Diabetes type 2, uncontrolled E11.65 Time Spent (min) 35 Comment Time spent reviewing labs/provider notes, face to face, chart doc
[2023-11-24 10:40] VITALS: BP 122/86; PULSE 62; BMI 34.5
[2023-11-24 10:51] LABS: Glucose, Whole Blood 173 mg/dL (60-115)
== END 2023-11-24 11:08 | disposition home or self-care (01) ==
PROVIDERS: PCP Nurse Practitioner Family; Visit Provider Nurse Practitioner Adult Health
DX: E11.65 Type 2 diabetes mellitus with hyperglycemia (principal)
CPT/HCPCS: 99214; G2211

== ENCOUNTER → 2023-11-24 10:39 | Outpatient (BNVA) | payer OTHER, SELFPAY | PROVIDERS: PCP Nurse Practitioner Family; Visit Provider Nurse Practitioner Adult Health | DX: E11.65 Type 2 diabetes mellitus with hyperglycemia (principal); E83.52 Hypercalcemia; L60.0 Ingrowing nail; Z79.4 Long term (current) use of insulin | CPT/HCPCS: 82947; 99212 ==

== ENCOUNTER 2024-03-17 07:42 | Outpatient (AMB) | payer OTHER, SELFPAY ==
--- NOTE | 2024-03-17 07:48 | MHC.PC.OV ---
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: No Accompanied by: Self / Same As Patient Allergies No Known Allergies Allergy (Verified 03/17/24 08:12) Medication List - Last Reconciled 03/17/24 by Anne Tucker PA-C apixaban (Eliquis) 5 mg PO BID aspirin 81 mg PO DAILY atorvastatin 80 mg PO BEDTIME blood sugar diagnostic Check BS 2-3x/day blood-glucose meter,continuous (FreeStyle Hiwot 3 [place]) As directed blood-glucose sensor (FreeStyle Hiwot 3 Sensor device) As directed insulin degludec 40 units (0.2 mL) subcut DAILY 30 days insulin lispro 1 sliding scale dose subcut USEASDIRECTD 30 days MDD 54 units lisinopril 10 mg PO DAILY metformin 1,000 mg (2 x 500 mg) PO BID metoprolol tartrate 25 mg PO BID pen needle, diabetic (Comfort EZ Pen [place]) As directed trazodone 50 mg PO BEDTIME PRN Trulicity (dulaglutide) 1.5 mg (0.5 mL) subcut QWEEK 28 days NS Tobacco use date assessed: 03/17/24 Dental Screening Dental Screen Date: 03/17/24 Did you have a dental visit in the last 12 months?: No Did you have a dental problem in the last 6 months where you did not have access to dental care?: No Was dental information given to patient?: Patient has dentist HPI annual exam/[facility] HPI Details 43-year-old male with past medical history uncontrolled diabetes mellitus, hypertension, hypercholesterolemia, STEMI in 2019 status post JOVANNY to mid RCA, former smoker, history of CVA 2023 coming in for annual exam.?Of note patient has missed several diabetic appointments, cardiovascular appointment and follow up. Patient tells us today he has been doing generally well. He has been working more hours and that is why he has missed several appointments. He states he will occasionally have blood sugar values less than 100 but never below 70. He typically will feel lightheaded his blood sugars are this low but has a snack and they resolve. He is no longer on long-acting or short-acting insulin is only on Trulicity and metformin. He has stopped smoking cigarettes. He does mentioned that he continues to have difficulty word finding and occasional slurred speech since his stroke. [facility] Medical History Myocardial infarct Surgical History History of surgery on arm Hx of shoulder surgery Hx of heart surgery Family History Father Accidental poisoning with ethyl alcohol Mother Heart disease Social History Housing: Apartment Patient Tobacco Use Status: Never used Tobacco e-Cigarette/Vaping Use: Never Used Second Hand Smoke Exposure: No service: No Current occupational status: employed Current occupational exposures/hazards: No Cognitive needs: No Hearing needs: No Vision needs: Yes Questionnaire PHQ-9 Over the last 2 weeks, how often have you been bothered by any of the following problems? 1. Little interest or pleasure in doing things: several days 2. Feeling down, depressed, or hopeless: not at all 3. Trouble falling or staying asleep, or sleeping too much: nearly every day 4. Feeling tired or having little energy: more than half the days 5. Poor appetite or overeating: not at all 6. Feeling bad about yourself - or that you are a failure or have let yourself or your family down: not at all 7. Trouble concentrating on things, such as reading the newspaper or watching television: not at all 8. Moving or speaking so slowly that other people could have noticed. Or the opposite - being so fidgety or restless that you have been moving around a lot more than usual: nearly every day 9. Thoughts that you would be better off or of hurting yourself in some way: not at all Total score: 9 Depression Screening Interpretation: Positive (increased trazodone) Depression Screening Follow-up: Existing condition and In treatment Depression Screening Done: Yes 69359 - PHQ-9 Billing: Yes Source: Developed by Drs. Stevan Canchola, Nan Hinkle, Warren Crane and colleagues, with an educational refugio from [email or web address]. Thrive Questionnaire Date Thrive assessed: 03/17/24 I am a: Patient What is your living situation today?: I do not have a steady places to live I am temporarily staying with others Within the past 12 months, did the food you bought not last and you didn't have the money to get more?: Often true Within the past 12 months, did you worry whether your food would run out before you got money to buy more?: Often true Do you have trouble paying for medicines?: Yes Do you have trouble getting transportation to medical appointments?: Yes Do you have trouble paying your heating and electricity bill?: Yes Do you have trouble taking care of your child, family member or friend?: I choose not to answer this question Do you have trouble with day-to-day activities such as bathing, preparing meals, shopping, managing finances, etc.?: Yes Are you currently unemployed and looking for a job?: No Are you interested in more education?: No Please select the resources that you would like help with: Housing/Care Home, Food and Utilities Currently or been in a relationship where the following occur: No concerns reported THRIVE Score: 5 AUDIT C Alcohol Use Questionnaire (AUDIT-C) 1. How often do you have a drink containing alcohol?: Never Total Score: 0 JAMAR-7 AMB Questionnaire JAMAR-7 Date JAMAR - 7 assessed: 03/17/24 Feeling nervous, anxious, or on edge: 2 = More than half the days Not being able to stop or control worryin = More than half the days Worrying too much about different things: 2 = More than half the days Trouble relaxin = More than half the days Being so restless that it is hard to sit still: 2 = More than half the days Becoming easily annoyed or irritable: 2 = More than half the days Feeling afraid as if something awful might happen: 2 = More than half the days Total JAMAR-7 score (0-4 normal; 5-9 mild; 10-14 moderate; 15-21 severe): 14 Source: Developed by Drs. Stevan Canchola, Nan Hinkle, Warren Crane and colleagues, with an educational refugio from [email or web address]. JAMAR-7 Assessment Billing JAMAR-7 Assessment Tool: JAMAR-7 Assessment 50275 Review of Systems Const Denies body aches, Denies chills, Denies fatigue, Denies fever(s), Reports headache(s) and Denies poor appetite Eyes Reports requires corrective lenses ENT Details: Aphasia Denies dysphagia, Denies dizziness, Reports headache(s) and Denies odynophagia Card Denies chest pain, Denies syncope, Denies edema, Denies irregular heart rhythm, Denies lightheadedness and Denies dyspnea Resp Denies cough and Denies dyspnea GI Denies abdominal pain, Denies constipation, Denies dysphagia, Denies diarrhea, Denies nausea, Denies odynophagia and Denies vomiting Reports no additional complaints Musc Reports no additional complaints and Denies abnormal gait Skin/Breast Reports system reviewed and no additional complaints, except as documented Neuro Denies Abnormal speech present, Denies abnormal gait, Denies dizziness, Denies syncope and Reports headache(s) Psych Reports no additional complaints Endo Denies fatigue Physical exam (Primary Care) Vital Signs: Last Vital Signs BP 116/86 03/17/24 07:52 BMI result Body Mass Index 32.4 Tobacco/Smoking Status: Tobacco use Status Tobacco use date assessed 03/17/24 03/17/24 07:56 Patient Tobacco Use Status Never used Tobacco 03/17/24 07:50 e-Cigarette/Vaping Use Never Used 03/17/24 07:50 PHQ-9: PHQ-9 Score PHQ-9: Total score 9 03/17/24 08:15 Depression Screening Interpretation: Positive (increased trazodone) Depression Screening Follow-up: Existing condition and In treatment Thrive Assessment: Date of Thrive Assessment Date Thrive assessed 03/17/24 03/17/24 07:56 Currently or been in a relationship where the following occur: No concerns reported Const General: cooperative, healthy appearing, comfortable and no acute distress Orientation/consciousness: patient oriented x3 HENMT Head: Yes normocephalic Ears: hearing grossly normal bilaterally General nose exam: Normal external nose present Face and sinus: Yes normal facial exam and Yes sinuses nontender Mouth: Normal oral and palatal mucosa present and tongue normal Throat: Yes posterior oropharynx normal Eyes General: appearance normal, both eyes and all related structures Conjunctivae: conjunctivae normal Pupils: Equal, round and reactive pupils present EOM: EOMs intact bilaterally and No Nystagmus present Neck Neck: Yes full ROM and Yes no lymphadenopathy Chest Chest palpation & inspection: normal inspection of the chest Resp Effort & Inspection: normal respiratory effort Auscultation: clear to auscultation bilaterally, no crackles, no rales, no rhonchi and no wheezes Cardio Rate: regular rate Rhythm: regular rhythm Peripheral pulses: radial pulses present and dorsalis pedis present GI Inspection: Yes normal to inspection and No Abdominal wall edema Palpation (GI): Soft to palpation, not firm and nontender Auscultation: normal bowel sounds Rectal Exam - Male: Yes deferred General: Yes no CVA tenderness Back/Spine/Pelvis Back: no CVA tenderness Skin General skin exam: no rashes or lesions noted Neuro General: patient oriented x3 Cranial nerves: Yes CN's II-XII intact bilaterally, Yes Equal, round and reactive pupils present, Yes Midline tongue present, Yes Ability to bilaterally elevate shoulders present and No Nystagmus present Cognition (Neuro): normal cognition Speech: No Abnormal speech present Gait exam (Neuro): Normal gait present Motor exam (neuro): 5/5 motor strength present throughout Extrem General: Yes normal to inspection, Yes full ROM and No edema Psych Speech and movement: Normal speech and movement present Affect: normal affect Attitude: cooperative Insight: Good insight present (Psych) Judgement: Good judgement present (Psych) Results AMB Hemoglobin A1c AMB Hemoglobin A1c 7.2 % Last Edit by NEGIN Squires on 03/17/24 08:00 Results Reviewed Results Reviewed: Laboratory Last Values Hgb A1c (Clinic) 7.2 % (4.0-6.0) H 03/17/24 07:58 Coding Level of Care Code Est Pt Prev Care 40-64y(63673) Diagnoses Uncontrolled type 2 diabetes mellitus with hyperglycemia E11.65 Glycemic state: with hyperglycemia History of AL (myocardial infarction) I25.2 Hypercholesterolemia E78.00 Essential hypertension I10 CVA (cerebral vascular accident) I63.9 Weakness of both lower extremities R29.898 Laterality: bilateral Aphasia as late effect of cerebrovascular accident (CVA) I69.320 Annual physical exam Z00.00 Insomnia G47.00 Depression F32.A Additional Codes JAMAR-7 Assessment Billing - JAMAR-7 Assessment Tool: JAMAR-7 Assessment 16975 ([id number]) PHQ-9 - 01430 - PHQ-9 Billing: Yes ([id number]) Assessment & Plan Assessment & Plan (1) Diabetes type 2, uncontrolled: Code(s): E11.65 - Type 2 diabetes mellitus with hyperglycemia Category: Medical Qualifiers: Glycemic state: with hyperglycemia Qualified Code(s): E11.65 - Type 2 diabetes mellitus with hyperglycemia Plan: Decrease the amount of carbohydrates such as pasta, bread, rice, and potatoes and limit the amount of sweets. Although fruits are generally healthy they should be eaten in moderation as they are still high in sugar. Hemoglobin A1c goal of less than 7%. A1c in the clinic today 7.2% patient informed us he is no longer taking his long-acting or short-acting insulin and is only using his Trulicity and metformin. He has been working on diet and exercise and has been able to achieve this A1c without insulin use. He does monitor his blood sugars and we will occasionally have lows below 70 if he skips meals. Strongly advised patient to reach out to endocrinology to reschedule appointment considering he has discontinued to medications and evaluation of hypoglycemia. We will plan to increase Trulicity. (2) History of AL (myocardial infarction): Comment: S/P stent in 2019 Code(s): I25.2 - Old myocardial infarction Category: Medical Plan: Advised good control of blood pressure, blood sugar and cholesterol. Ordered for updated cholesterol labs. Currently on aspirin 81 mg, atorvastatin 80 mg and metoprolol Patient missed appointment with Cardiology strongly encouraged to be schedule this. (3) Hypercholesterolemia: Code(s): E78.00 - Pure hypercholesterolemia, unspecified Category: Medical Plan: Avoid foods that are high in cholesterol such as red meat, fried foods, eggs and baked goods. Triglyceride goal of less than 150 and LDL goal of less than 70. Continue on atorvastatin 80 mg. Ordered for updated cholesterol labs (4) Essential hypertension: Code(s): I10 - Essential (primary) hypertension Category: Medical Plan: Continue on current blood pressure medication. Avoid salt intake and encourage healthy diet and regular exercise. (5) CVA (cerebral vascular accident): Code(s): I63.9 - Cerebral infarction, unspecified Category: Medical Plan: Advised good control of diabetes, cholesterol and blood pressure. Currently on Eliquis and aspirin and taking atorvastatin 80 mg and managing diabetes. (6) Lower extremity weakness: Code(s): R29.898 - Other symptoms and signs involving the musculoskeletal system Category: Medical Qualifiers: Laterality: bilateral Qualified Code(s): R29.898 - Other symptoms and signs involving the musculoskeletal system Plan: Patient continues to have occasional lower extremity weakness status post CVA has been doing well with exercise therapy. Continue to monitor (7) Aphasia as late effect of cerebrovascular accident (CVA): Code(s): I69.320 - Aphasia following cerebral infarction Category: Medical Plan: Patient complaining of difficulty word finding after CVA states he has never underwent speech therapy. He will occasionally mistake words (example. Saying bad instead of hat). Oral placed to speech and language at this time. (8) Annual physical exam: Code(s): Z00.00 - Encounter for general adult medical examination without abnormal findings Category: Medical Plan: Patient is up-to-date on all recommended routine screenings and vaccinations for his age. Referral placed to colonoscopy as he will be due this year. Ordered for updated blood work. Patient declining flu shot today and we will reschedule. (9) Insomnia: Code(s): G47.00 - Insomnia, unspecified Category: Medical Plan: Increasing trazodone to 100 mg for better benefit. Patient states he usually takes 2 with the 50 mg tablets. (10) Depression: Code(s): F32.A - Depression, unspecified Category: Medical Plan: Patient states he has occasional depression we will increase trazodone 100 mg to take daily. Follow up in 3 months. Plan This note was constructed using voice recognition software. While every effort has been made to ensure accuracy and entry level mechanical engineer, still areas may have been included sometimes these areas may affect the content or meeting of the given symptoms. Total time spent caring for the patient today was 30 minutes. This includes time spent before the visit reviewing the chart, time spent during the visit, and time spent after the visit and documentation. Orders: Orders Influenza [id number] Immunization Today Z23 - Encounter for immunization Lipid Panel Today E11.65 - Type 2 diabetes mellitus with hyperglycemia, E78.00 - Pure hypercholesterolemia, unspecified Comprehensive Met. Panel Today E11.65 - Type 2 diabetes mellitus with hyperglycemia, Z00.00 - Encounter for general adult medical examination without abnormal findings Complete Blood Count Auto Diff Today E11.65 - Type 2 diabetes mellitus with hyperglycemia, Z00.00 - Encounter for general adult medical examination without abnormal findings UA CC w/rflx Micro + Cult Today E11.65 - Type 2 diabetes mellitus with hyperglycemia, R35.89 - Other polyuria AMB Hemoglobin A1c Today E11.65 - Type 2 diabetes mellitus with hyperglycemia Free T4 (Free Thyroxine) Today I10 - Essential (primary) hypertension, Z00.00 - Encounter for general adult medical examination without abnormal findings TSH reflex Free T4 Today I10 - Essential (primary) hypertension, Z00.00 - Encounter for general adult medical examination without abnormal findings Vitamin B12 and Folate Today E11.65 - Type 2 diabetes mellitus with hyperglycemia, Z00.00 - Encounter for general adult medical examination without abnormal findings Vitamin D 25-OH Total Today E11.65 - Type 2 diabetes mellitus with hyperglycemia, Z00.00 - Encounter for general adult medical examination without abnormal findings Microalbumin, Random (w Creat) Today E11.65 - Type 2 diabetes mellitus with hyperglycemia, E11.9 - Type 2 diabetes mellitus without complications Referrals Speech and Hearing Referral I69.320 - Aphasia following cerebral infarction, R47.1 - Dysarthria and anarthria Gastroenterology Referral Z12.11 - Encounter for screening for malignant neoplasm of colon Medications: New Fluarix Triv [id number] (PF) (flu vacc [id number] 6mos up(PF)) 0.5 mL IM ONCE 0.5 mL 0RF NS Z23 - Encounter for immunization trazodone 100 mg PO BEDTIME 90 tabs 3RF Discontinued trazodone Discontinued Reason: Patient no longer taking 50 mg PO BEDTIME PRN 20 tabs 0RF for insomnia On Hold insulin degludec Hold Comment: patient no longer taking 40 units (0.2 mL) subcut DAILY 30 days 6 mL 5RF E11.65 - Type 2 diabetes mellitus with hyperglycemia insulin lispro Hold Comment: patient no longer taking 1 sliding scale dose subcut USEASDIRECTD 30 days 21 mL 5RF MDD 54 units
[2024-03-17 07:52] VITALS: BP 116/86; BMI 32.4
== END 2024-03-17 08:39 | disposition home or self-care (01) ==
DX: Z00.00 Encounter for general adult medical examination without abnormal findings (principal); E11.65 Type 2 diabetes mellitus with hyperglycemia; I25.2 Old myocardial infarction; E78.00 Pure hypercholesterolemia, unspecified; I10 Essential (primary) hypertension; R29.898 Other symptoms and signs involving the musculoskeletal system; I69.320 Aphasia following cerebral infarction; G47.00 Insomnia, unspecified; F32.A Depression, unspecified

== ENCOUNTER → 2024-03-17 07:42 | Outpatient (BNVA) | payer OTHER, SELFPAY | PROVIDERS: PCP Nurse Practitioner Family | DX: Z00.00 Encounter for general adult medical examination without abnormal findings (principal); E11.65 Type 2 diabetes mellitus with hyperglycemia; I10 Essential (primary) hypertension; E78.00 Pure hypercholesterolemia, unspecified; I25.2 Old myocardial infarction; I69.320 Aphasia following cerebral infarction; R29.898 Other symptoms and signs involving the musculoskeletal system; G47.00 Insomnia, unspecified; F32.A Depression, unspecified; Z87.891 Personal history of nicotine dependence; Z79.84 Long term (current) use of oral hypoglycemic drugs; Z79.899 Other long term (current) drug therapy | CPT/HCPCS: 83036; 96127; 99396 ==

== ENCOUNTER 2024-08-10 11:01 | Outpatient (AMB) | payer OTHER, SELFPAY ==
[2024-08-10 11:16] VITALS: BP 116/80; PULSE 83; RESP 16; TEMP 36.8; O2SAT 98; BMI 33.3
--- NOTE | 2024-08-10 11:16 | AM.OFFWIN_ITS ---
Intake Vital Signs 08/10/24 11:16 Height 5 ft 8 in Weight 219 lb BMI 33.3 BP 116/80 Blood Pressure Location Rt brachial Position Sitting Respiration 16 Pulse 83 Pulse Source Pulse Oximeter Temp 98.3 F Temp Source Oral Pulse Oximetry (%) 98 Oxygen Delivery Method Room Air Intake Visit Reasons: EP-lt foot big toe infected Intake Note: Pt is here today c/o Lt foot grt toe infected x5mo. not better Patient Tobacco Use Status: Never used Tobacco Allergies No Known Allergies Allergy (Verified 08/10/24 11:22) HPI HPI Comments History of Present Illness Details History of Present Illness - The patient is a 43-year-old male pres enting with an ingrown toenail with infection. - The condition began approximately one month ago without causing significant distress initially. - Over the last week and a half, the sit uation has deteriorated, with the left great toe becoming swollen and infected and causing substantial pain. - He has had pus draining from the left great toe. - The presence of infection is reported without accompanying systemic symptoms like fever or chills. - The patient has attempted home managem ent using Epsom salt soaks without improvement. - The notable increase in pain is affect ing the ability to engage in regular activities, such as wearing footwear and it hurts to walk. - He denies numbness, tingling, fever, c hills, or foot pain. Physical Exam General: Cooperative, healthy appearing, comfortable, no acute distress and well developed Respiratory: Normal respiratory effort and able to speak in complete sentences. Clear to auscultation bilaterally Cardiovascular: Regular rate and rhythm. Normal S1 and S2 Skin: No rashes or lesions noted. Ingrown toenail noted on left great toe on the medial aspect. Neuro: Patient oriented x3. Sensation on the extremities intact. Extremities: FROM of the left digits on the left foot and left ankle. TTP of the left great toe. Ambulates with a steady gait. Patient was informed and verbally consented to the use of an ambient scribe for clinic note documentation during this visit. [facility] Medical History Myocardial infarct Surgical History History of surgery on arm Hx of shoulder surgery Hx of heart surgery Family History Father Accidental poisoning with ethyl alcohol Mother Heart disease Social History Housing: Apartment Patient Tobacco Use Status: Never used Tobacco e-Cigarette/Vaping Use: Never Used Second Hand Smoke Exposure: No service: No Current occupational status: employed Current occupational exposures/hazards: No Cognitive needs: No Hearing needs: No Vision needs: Yes Review of Systems Const All systems reviewed & are unremarkable except as noted in HPI and below Physical Exam Vital Signs: BMI result Body Mass Index 33.3 Assessment & Plan Assessment & Plan (1) Paronychia of great toe of left foot: Code(s): L03.032 - Cellulitis of left toe Plan Most likely paronychia left great toe Plan - Prescribed Doxycycline 100 mg for 10 days to treat the infection. - Bactroban ointment to the left great toe BID for 10 days. - Instructed to apply antibacterial ointment topically twice daily. - Recommended continued foot soaks with Epsom salt. - Advised the patient to rest with the foot elevated. - Planned referral to podiatry for possible toenail resection once the infection is under control. Orders: Referrals Podiatry Referral L60.0 - Ingrowing nail Medications: New doxycycline hyclate 100 mg PO BID 10 tabs 0RF mupirocin 2% 1 appl topical BID 7 days 22 grams 0RF Coding Level of Care Code Est Pt Level 3 (05506) Diagnoses Paronychia of great toe of left foot L03.032
--- OUTSIDE RECORDS SUMMARY | 2024-08-10 11:57 | XMS_ITS | Clinical Summary ---
Author Organization [facility] Address [address] [place] [address] Care Team Providers Care Controller Repairer And Tester Name Role Phone Unavailable Primary Care Provider Unavailabl e Medical History Medical History Date Comments Diabetes mellitus type 2, co ntrolled, with complications (CMS/HCC V24, CMS/HCC V28) DX:Diabetes mellitus type 2, controlled, with complications (HCC) Social History Tobacco Use Types Packs/Day Years Used Date Smoking Tobacco: Never Smokeless Tobacco: Never Alcohol Use Standard Drinks/Week Comments Never 0 (1 standard drink = 0.6 oz pur e alcohol) Sex and Gender Information Value Date Recorded Sex Assigned at Not on file Legal Sex Male 3:45 AM EST Gender Identity Not on file Sexual Orientation Not on file Obstetrics History Plan of Treatment Health Maintenance Due Date Last Done Comments DTaP,Tdap,and Td Vaccines (1 - Tdap) 12/30/1998 Hepatitis B Vaccines (1 of 3 - 19+ 3-dose series) 12/30/1998 Cholesterol Screening (Lipid Panel) 02/09/2022 Depression Screening 02/09/2022 HIV Screening 02/09/2022 Hepatitis C Screening 02/09/2022 Social Influencers of Health Screening 02/09/2022 COVID-19 Vaccine ( - 2023-2 5 season) 2023 Influenza Vaccine (Season Ended) 2024 HIB Vaccines Aged Out No longer eligi ble based on patient's age to complete this topic HPV Vaccines Aged Out No longer eligi ble based on patient's age to complete this topic Hepatitis A Vaccines Aged Out No long er eligible based on patient's age to complete this topic IPV Vaccines Aged Out No longer eligi ble based on patient's age to complete this topic MMR Vaccines Aged Out No longer eligi ble based on patient's age to complete this topic Meningococcal ACWY Vaccine Aged Out N o longer eligible based on patient's age to complete this topic Meningococcal B Vaccine Aged Out No l onger eligible based on patient's age to complete this topic Pneumococcal Vaccine: Pediat rics (0 to 5 Years) and At-Risk Patients (6 to 64 Years) Aged Out No longer eligible b ased on patient's age to complete this topic RSV Immunization Patients Un sebastien 20 months Aged Out No longer eligible b ased on patient's age to complete this topic Varicella Vaccines Aged Out No longer eligible based on patient's age to complete this topic
== END 2024-08-10 11:58 | disposition home or self-care (01) ==
PROVIDERS: Visit Provider Physician Assistant Medical
DX: L03.032 Cellulitis of left toe (principal)

== ENCOUNTER → 2024-08-10 11:01 | Outpatient (BNVA) | payer OTHER, SELFPAY | PROVIDERS: Visit Provider Physician Assistant Medical | DX: L03.032 Cellulitis of left toe (principal) | CPT/HCPCS: 99212 ==

== ENCOUNTER 2024-08-25 09:32 | Outpatient (AMB) | payer OTHER, SELFPAY ==
--- NOTE | 2024-08-25 09:37 | MHC.OFFWIV ---
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 He was evaluated and treated here at the walk in clinic 08/10 for Ingrown toe nail (Paronychia) infection - he was given Doxycycline for 5 days, then additional 5 days. He was referred to Podiatry but has not received a call yet. Pt shows up today, hoping to hve his toe/nail removed. Reports that pain and infection have resolved but worried it will return. [facility] Medical History Myocardial infarct Surgical History History of surgery on arm Hx of shoulder surgery Hx of heart surgery Family History Father Accidental poisoning with ethyl alcohol Mother Heart disease Social History Housing: Apartment Patient Tobacco Use Status: Never used Tobacco e-Cigarette/Vaping Use: Never Used Second Hand Smoke Exposure: No service: No Current occupational status: employed Current occupational exposures/hazards: No Cognitive needs: No Hearing needs: No Vision needs: Yes Review of Systems Const All systems reviewed & are unremarkable except as noted in HPI and below Physical Exam Vital Signs: Last Vital Signs Temp 98.3 F 08/25/24 09:38 Pulse 86 08/25/24 09:38 BP 128/80 08/25/24 09:38 Pulse Ox 97 08/25/24 09:38 Oxygen Delivery Method Room Air 08/25/24 09:38 BMI result Body Mass Index 32.5 Const General: no acute distress Nutritional Appearance: overweight Orientation/consciousness: patient oriented x3 Skin Nails: discolored and yellow and thickened Neuro General: patient oriented x3 Extrem Left lower extremity: foot Details: normal capillary refill, tenderness Location: of the great toe Location: over the nailbed (Hard, brittle discolored toe Nail) and toes with normal ROM Ankle/foot/toe images:  1. Hard, brittle discolored toe Nail Assessment & Plan Assessment & Plan (1) Ingrown nail of great toe: Code(s): L60.0 - Ingrowing nail Plan: Printed Information on Podiatry - Pt to call and self schedule. Infection Resolved Coding Level of Care Code Est Pt Level 4 (57081) Diagnoses Ingrown nail of great toe L60.0 Time Spent (min) 20
[2024-08-25 09:38] VITALS: BP 128/80; PULSE 86; TEMP 36.8; O2SAT 97; BMI 32.5
--- OUTSIDE RECORDS SUMMARY | 2024-08-25 10:21 | XMS_ITS | Clinical Summary ---
Author Organization [facility] Address [address] [place] [address] Care Team Providers Care Underground Miner Name Role Phone Unavailable Primary Care Provider [...]
== END 2024-08-25 10:05 | disposition home or self-care (01) ==
PROVIDERS: Visit Provider Nurse Practitioner Family
DX: L60.0 Ingrowing nail (principal)

== ENCOUNTER → 2024-08-25 09:32 | Outpatient (BNVA) | payer OTHER, SELFPAY | PROVIDERS: Visit Provider Nurse Practitioner Family | DX: L60.0 Ingrowing nail (principal) | CPT/HCPCS: 99212 ==

== ENCOUNTER 2024-08-25 10:16 | Emergency (ER) | payer OTHER, SELFPAY ==
[2024-08-25 10:28] VITALS: BP 128/86; PULSE 86; RESP 16; TEMP 35.9; O2SAT 96; BMI 32.5
--- NOTE | 2024-08-25 11:31 | PC.NURSE ---
pt a&ox3, pt states he finished up his abx yesterday, lt great toe continues to be red and painful, pt awaiting evaluation from provider, call alberto within reach, plan of care ongoing
--- NOTE | 2024-08-25 11:53 | ED.GENADULT ---
HPI - General Adult General Chief complaint: General Medical Stated complaint: Ingrown toenail Time Seen by Provider: 08/25/24 11:27 Source: patient Mode of arrival: ambulatory Limitations: no limitations History of Present Illness HPI narrative: Patient presented to the emergency department requesting removal of the left big toe nail he went to the urgent care this morning as well he has a history of diabetes he stated that he has an ingrown toenail for six-month he states he is unable to get an appointment with the with the aerial photogrammetrist. He is requesting removal of the toenail Onset (ago): month(s) (6 months) Location: lower extremity (Left ingrown toenail) Radiation: non-radiation Severity: moderate Quality: burning Pain Consistency: constant Relieving factors: none Exacerbating factors: none Associated symptoms: denies other symptoms Related Data Previous Rx's ?Medication ?Instructions ?Recorded blood sugar diagnostic #100 ea 02/25/21 pen needle, diabetic 32 gauge x #100 ea 06/04/21/32 (Comfort EZ Pen [place]) lisinopril 10 mg tablet 10 mg PO DAILY #90 tabs 05/30/22 metformin 500 mg tablet 1,000 mg (2 x 500 mg) PO BID #120 05/30/22 tabs blood-glucose,real estate analyst,cont #1 ea 10/20/23 (FreeStyle Hiwot 3 Sleepy Eye) blood-glucose sensor (FreeStyle #1 ea 11/05/23 Hiwot 3 Sensor device) Trulicity 1.5 mg/0.5 mL 1.5 mg (0.5 mL) subcut QWEEK 28 11/19/23 subcutaneous pen injector days #2 mL (dulaglutide) insulin degludec 200 unit/mL (3 40 unit (0.2 mL) subcut DAILY 30 11/24/23 mL) subcutaneous pen days #6 mL Held on 03/17/24. Instructions: patient no longer taking insulin lispro 100 unit/mL 1 sliding scale dose subcut 11/24/23 subcutaneous pen USEASDIRECTD 30 days #21 mL Held on 03/17/24. Instructions: patient no longer taking aspirin 81 mg tablet,delayed 81 mg PO DAILY #90 tabs 11/27/23 release atorvastatin 80 mg tablet 80 mg PO BEDTIME #90 tabs 11/27/23 metoprolol tartrate 25 mg tablet 25 mg PO BID #90 tabs 11/27/23 trazodone 100 mg tablet 100 mg PO BEDTIME #90 tabs 03/17/24 FreeStyle [place] Lite Strips #1 ea 06/27/24 FreeStyle [place] Lite lancets #1 ea 06/27/24 Freestyle freedom lite #1 ea 06/27/24 mupirocin 2 % topical ointment 1 appl topical BID 7 days #22 grams 08/10/24 apixaban 5 mg tablet (Eliquis) 5 mg PO BID #60 tabs 08/16/24 cephalexin 500 mg capsule 500 mg PO Q8H #20 caps 08/25/24 Allergies Allergy/AdvReac Type Severity Reaction Status Date / Time No Known Allergies Allergy Verified 08/25/24 10:30 Review of Systems Constitutional: Constitutional: Reports no additional constitutional complaints ENT: Reports system reviewed and no additional complaints, except as documented [facility] Past Medical History Attestation statement: The following information was validated with the patient. [facility] Narrative: Diabetes Medical History Myocardial infarct Surgical History History of surgery on arm Hx of shoulder surgery Hx of heart surgery Family History Family History Father Accidental poisoning with ethyl alcohol Mother Heart disease Social History Social History Housing: Apartment Patient Tobacco Use Status: Never used Tobacco Smoked in Last 30 Days: No e-Cigarette/Vaping Use: Never Used Second Hand Smoke Exposure: No Use of substances other than those prescribed or required for medical reasons: No Advance Directives: No Advance Directives Information Provided: Yes service: No Current occupational status: employed Current occupational exposures/hazards: No Cognitive needs: No Hearing needs: No Vision needs: Yes Physical Exam ED Vital Signs: Vital Signs - 24 hr 08/25/24 10:28 Temperature 96.7 F L Pulse Rate 86 Respiratory Rate 16 Blood Pressure 128/86 Pulse Oximetry 96 Oxygen Delivery Method Room Air BMI result Body Mass Index 32.5 Not toxic appearing looks well Const General: cooperative Nutritional Appearance: average body habitus Orientation/consciousness: patient oriented x3 Limitations: no limitations HENMT Head: Yes normal to inspection General nose exam: Normal external nose present Face and sinus: Yes normal facial exam Mouth: Normal oral and palatal mucosa present Throat: Yes posterior oropharynx normal Neck Neck: Yes normal visual inspection Chest Chest palpation & inspection: normal inspection of the chest Resp Effort & Inspection: normal respiratory effort Cardio Jugular venous distension: no JVD Rate: regular rate GI Inspection: Yes normal to inspection Auscultation: normal bowel sounds Skin General skin exam: no rashes or lesions noted Lesions: no lesions Rashes: no rashes Neuro General: patient oriented x3 Extrem Other: Examination shows left mild ingrown toenail see picture General: Yes capillary refill normal Medical Decision Making Medical Decision Making MDM Narrative: Patient is in requesting removal of the nail he has history of diabetes he has not toxic he is afebrile there is mild redness but no pus I explained to him that he to have his primary care physician referred him to a aerial photogrammetrist I gave him the name also aerial photogrammetrist I do not think we need to remove the nail and right now I will give him a course of Keflex and return precaution, he is comfortable with the plan of care Admission/Observation Consideration of admission/observation: Escalation of care including admission/observation considered Independent Historian Clinical information obtained from an independent historian. History obtained from or confirmed by: Spouse Prescription Management I considered prescription management with: Antibiotic Discharge Plan Discharge Clinical Impression: Ingrowing nail, left great toe Patient Disposition: Home, Self-Care Instructions: Ingrown Nail (ED) Prescriptions: New cephalexin 500 mg capsule 500 mg PO Q8H Qty: 20 0RF No Action (DME) blood sugar diagnostic Strip See Rx Instructions miscellaneous .MEDSUPPLY Qty: 100 3RF Rx Instructions: Check BS 2-3x/day (DME) pen needle, diabetic [Comfort EZ Pen [place]] 32 gauge x 5/32 needle See Rx Instructions .Route Qty: 100 1RF Rx Instructions: As directed lisinopril 10 mg tablet 10 mg PO DAILY Qty: 90 0RF metformin 500 mg tablet 1,000 mg PO BID Qty: 120 0RF (DME) FreeStyle Hiwot 3 Sleepy Eye Misc See Rx Instructions .Route Qty: 1 0RF Rx Instructions: As directed (DME) FreeStyle Hiwot 3 Sensor Device See Rx Instructions .Route Qty: 1 0RF Rx Instructions: As directed Trulicity 1.5 mg/0.5 mL pen injector 1.5 mg subcut QWEEK 28 Days Qty: 2 11RF aspirin 81 mg tablet,delayed release (DR/EC) 81 mg PO DAILY Qty: 90 0RF metoprolol tartrate 25 mg tablet 25 mg PO BID Qty: 90 1RF atorvastatin 80 mg tablet 80 mg PO BEDTIME Qty: 90 1RF (DME) Freestyle freedom lite See Rx Instructions .Route .MEDSUPPLY Qty: 1 0RF Rx Instructions: As directed (DME) FreeStyle [place] Lite lancets See Rx Instructions .Route .MEDSUPPLY Qty: 1 3RF Rx Instructions: As directed- once daily (DME) FreeStyle [place] Lite Strips See Rx Instructions .Route .MEDSUPPLY Qty: 1 0RF Rx Instructions: As directed- once daily Eliquis 5 mg tablet 5 mg PO BID Qty: 60 2RF mupirocin 2 % ointment 1 appl topical BID 7 Days Qty: 22 0RF insulin degludec 200 unit/mL (3 mL) insulin pen 40 unit subcut DAILY 30 Days Qty: 6 5RF insulin lispro 100 unit/mL insulin pen 1 sliding scale dose subcut USEASDIRECTD MDD 54 units 30 Days Qty: 21 5RF Rx Instructions: 80-150 12 units 151-200 16 units 201-250 20 units 251-300 24 units over 300 18 units Fluarix Triv [id number] (PF) 45 mcg (15 mcg x 3)/0.5 mL syringe 0.5 ml IM ONCE Qty: 0.5 0RF trazodone 100 mg tablet 100 mg PO BEDTIME Qty: 90 3RF Referrals: Chai Singh DPM [Physician, Podiatry] - 08/29/24 Print Language: Wolof
[2024-08-25 12:04] VITALS: BP 131/82; PULSE 88; RESP 16; TEMP 36.1; O2SAT 97
== END 2024-08-25 12:05 | disposition home or self-care (01) ==
PROVIDERS: Emergency Provider Emergency Medicine
DX: L60.0 Ingrowing nail (principal); E11.9 Type 2 diabetes mellitus without complications; Z79.4 Long term (current) use of insulin; Z79.899 Other long term (current) drug therapy
CPT/HCPCS: 99283

== ENCOUNTER 2025-02-06 09:27 | Emergency (ER) | payer OTHER, SELFPAY ==
[2025-02-06 09:33] VITALS: BP 130/74; PULSE 88; RESP 18; TEMP 36.4; O2SAT 98; BMI 30.5
--- NOTE | 2025-02-06 11:47 | ED.GENADULT ---
[facility] - General Adult General Chief complaint: Extremity Injury, Lower Stated complaint: Wound on foot? diabetic Time Seen by Provider: 02/06/25 11:43 Source: patient Mode of arrival: ambulatory Limitations: no limitations History of Present Illness ED Provider: Dr. Ferrari HPI narrative: This is a 44-year-old male history of diabetes presented hospital today for ingrown toenail of the left great toe. The patient stated that he has this ingrown toenail for a while however recently become infected. There was pus drainage. No fever. It is tender to touch. He attempted to clipped his toenail himself however unable to. 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 Instructions: patient no longer taking insulin lispro 100 unit/mL 1 sliding scale dose subcut 11/24/23 subcutaneous pen USEASDIRECTD 30 days #21 mL Held on 03/17/24. Instructions: patient no longer taking atorvastatin 80 mg tablet 80 mg PO BEDTIME #90 tabs 11/27/23 metoprolol tartrate 25 mg tablet 25 mg PO BID #90 tabs 11/27/23 trazodone 100 mg tablet 100 mg PO BEDTIME #90 tabs 03/17/24 FreeStyle [place] Lite Strips #1 ea 06/27/24 FreeStyle [place] Lite lancets #1 ea 06/27/24 Freestyle freedom lite #1 ea 06/27/24 mupirocin 2 % topical ointment 1 appl topical BID 7 days #22 grams 08/10/24 apixaban 5 mg tablet (Eliquis) 5 mg PO BID #60 tabs 08/16/24 cephalexin 500 mg capsule 500 mg PO Q8H #20 caps 08/25/24 aspirin 81 mg tablet,delayed 81 mg PO DAILY #90 tabs 09/27/24 release ciprofloxacin HCl 500 mg tablet 500 mg PO Q12H 7 days #14 tabs 02/06/25 sulfamethoxazole 800 1 tab PO Q12H 7 days #14 tabs 02/06/25 mg-trimethoprim 160 mg tablet (Bactrim DS) Allergies Allergy/AdvReac Type Severity Reaction Status Date / Time No Known Allergies Allergy Verified 02/06/25 09:34 Review of Systems Review of Systems: Pertinent review of systems as mentioned in HPI. All other system otherwise negative. [facility] Past Medical History [facility] Narrative: Diabetes Medical History Myocardial infarct Surgical History History of surgery on arm Hx of shoulder surgery Hx of heart surgery Family History Family History Father Accidental poisoning with ethyl alcohol Mother Heart disease Social History Social History Housing: Apartment Patient Tobacco Use Status: Never used Tobacco e-Cigarette/Vaping Use: Never Used Second Hand Smoke Exposure: No Advance Directives: No Advance Directives Information Provided: No Do you have a plan to hurt others: No Plan service: No Current occupational status: employed Current occupational exposures/hazards: No Cognitive needs: No Hearing needs: No Vision needs: Yes Physical Exam ED Exam Exam: General: Pleasant, no distress, interacting appropriately Head: Normacephalic, atraumatic Extremities: Cellulitis of the left great toe. There was pus drainage at the site of the ingrown toenail. Spontaneous draining on its own. No signs of fluctuant mass Neurological: Awake and alert, no facial droop noted Skin: Warm and dry Psychiatric: Appropriate mood and thoughts Vital Signs: Vital Signs - 24 hr 02/06/25 09:33 02/06/25 12:22 Temperature 97.6 F 97.6 F Pulse Rate 88 88 Respiratory Rate 18 18 Blood Pressure 130/74 130/74 Pulse Oximetry 98 98 Oxygen Delivery Method Room Air Room Air BMI result Body Mass Index 30.5 Medications Administered Discontinued Medications Generic Name Dose Route Start Last Admin Trade Name Freq PRN Reason Stop Dose Admin Doxycycline Monohydrate 100 mg 02/06/25 12:11 02/06/25 12:21 Doxycycline Monohydrate 100 Mg Capsule PO 02/06/25 12:12 100 mg ONCE ONE Administration Medical Decision Making Medical Decision Making MDM Narrative: 44-year-old male history of diabetes presented hospital today for evaluation of infection of the left great toe. We will plan to give patient a dose of doxycycline here. Patient will be discharged with the Podiatry follow up for his ingrown toenail. This infection is spontaneous draining at this time. We will plan to prescribe patient Bactrim and ciprofloxacin for antibiotic coverage at this time. No sign of sepsis. Not tachycardic no fever. I did look up [employer] coupons to provided the patient. The patient is worried that his insurance may not cover his medications. Return precautions given return to ER if he has getting worse despite antibiotic signs of fever and worsening infection. Patient agrees and understands this plan all questions were addressed. Differential Diagnosis Differential Diagnoses: The differential diagnosis associated with the presentation includes Cellulitis, abscess, ingrown toenail Chronic Conditions Patient?s care impacted by: Diabetes Discharge Plan Discharge Clinical Impression: Ingrown nail of great toe Cellulitis Qualifiers: Site of cellulitis: extremity Site of cellulitis of extremity: lower extremity Laterality: left Qualified Code(s): L03.116 - Cellulitis of left lower limb Patient Disposition: Home, Self-Care Instructions: Ingrown Nail (ED) Prescriptions: New ciprofloxacin HCl 500 mg tablet 500 mg PO Q12H 7 Days Qty: 14 0RF sulfamethoxazole-trimethoprim [Bactrim DS] 800-160 mg tablet 1 tab PO Q12H 7 Days Qty: 14 0RF No Action (DME) blood sugar diagnostic Strip See Rx Instructions miscellaneous .MEDSUPPLY Qty: 100 3RF Rx Instructions: Check BS 2-3x/day (DME) pen needle, diabetic [Comfort EZ Pen [place]] 32 gauge x 5/32 needle See Rx Instructions .Route Qty: 100 1RF Rx Instructions: As directed lisinopril 10 mg tablet 10 mg PO DAILY Qty: 90 0RF metformin 500 mg tablet 1,000 mg PO BID Qty: 120 0RF (DME) FreeStyle Hiwot 3 [place] Misc See Rx Instructions .Route Qty: 1 0RF Rx Instructions: As directed (DME) FreeStyle Hiwot 3 Sensor Device See Rx Instructions .Route Qty: 1 0RF Rx Instructions: As directed Trulicity 1.5 mg/0.5 mL pen injector 1.5 mg subcut QWEEK 28 Days Qty: 2 11RF metoprolol tartrate 25 mg tablet 25 mg PO BID Qty: 90 1RF atorvastatin 80 mg tablet 80 mg PO BEDTIME Qty: 90 1RF (DME) Freestyle freedom lite See Rx Instructions .Route .MEDSUPPLY Qty: 1 0RF Rx Instructions: As directed (DME) FreeStyle [place] Lite lancets See Rx Instructions .Route .MEDSUPPLY Qty: 1 3RF Rx Instructions: As directed- once daily (DME) FreeStyle [place] Lite Strips See Rx Instructions .Route .MEDSUPPLY Qty: 1 0RF Rx Instructions: As directed- once daily Eliquis 5 mg tablet 5 mg PO BID Qty: 60 2RF aspirin 81 mg tablet,delayed release (DR/EC) 81 mg PO DAILY Qty: 90 0RF cephalexin 500 mg capsule 500 mg PO Q8H Qty: 20 0RF mupirocin 2 % ointment 1 appl topical BID 7 Days Qty: 22 0RF insulin degludec 200 unit/mL (3 mL) insulin pen 40 unit subcut DAILY 30 Days Qty: 6 5RF insulin lispro 100 unit/mL insulin pen 1 sliding scale dose subcut USEASDIRECTD MDD 54 units 30 Days Qty: 21 5RF Rx Instructions: 80-150 12 units 151-200 16 units 201-250 20 units 251-300 24 units over 300 18 units Fluarix Triv [id number] (PF) 45 mcg (15 mcg x 3)/0.5 mL syringe 0.5 ml IM ONCE Qty: 0.5 0RF trazodone 100 mg tablet 100 mg PO BEDTIME Qty: 90 3RF Referrals: [facility] Podiatry [Provider Group, Podiatry] Clinical Impression: Cellulitis; Ingrown nail of great toe Stand Alone Forms: Work/School Release Interventions: ED Discharge Assessment Last Done: 02/06/25 12:22 Discharge Date/Time: 02/06/25 12:23 Print Language: Chinese
[2025-02-06 12:22] VITALS: BP 130/74; PULSE 88; RESP 18; TEMP 36.4; O2SAT 98
--- OUTSIDE RECORDS SUMMARY | 2025-02-06 15:30 | XMS_ITS | Clinical Summary ---
Author Organization [facility] Address [address] [place] [address] Care Team Providers Care Correction Officer [facility] Name Role Phone Unavailable Primary Care Provider [...] of 3 - 19+ 3-dose series) 12/30/1998 HPV Vaccines (1 - 3-dose SCD M series) 12/30/2006 Depression Screening 03/09/2024 COVID-19 Vaccine ( - 2024-2 6 season) 2024 Influenza Vaccine (#1) 2024 RSV Immunization Adult Patie nts (1 - 1-dose 75+ series) 12/30/2054 HIB Vaccines Aged Out No longer eligi [...] 5 Years) and At-Risk Patients (6 to 49 Years) Aged Out No longer eligible b ased on patient's age to complete this topic RSV Immunization Patients Un sebastien 20 months Aged Out No longer eligible b ased on patient's age to complete this topic Varicella Vaccines Aged Out No longer eligible based on patient's age to complete this topic
== END 2025-02-06 12:23 | disposition home or self-care (01) ==
PROVIDERS: Emergency Provider Student in an Organized Health Care Education/Training Program
DX: L60.0 Ingrowing nail (principal); L03.116 Cellulitis of left lower limb; E11.9 Type 2 diabetes mellitus without complications
CPT/HCPCS: 99282; 99283